=== PATIENT | male | born 1950 | race Caucasian/White ===

== ENCOUNTER 2021-06-18 13:31 | Observation (INO) | payer MEDICARE, OTHER, SELFPAY ==
[2021-06-18] VITALS (12 sets, daily range): BP systolic 148–175; BP diastolic 82–103; PULSE 76–101; RESP 14–19; TEMP 36.3–37.1; O2SAT 94–97; BMI 32.5; BMI 30.6
--- NOTE | 2021-06-18 13:34 | EKG12_ITS ---
Test Reason : STROKE ALERT Blood Pressure : / mmHG Vent. Rate : 091 BPM Atrial Rate : 091 BPM P-R Int : 194 ms QRS Dur : 102 ms QT Int : 388 ms P-R-T Axes : 023 038 021 degrees QTc Int : 477 ms Normal sinus rhythm Poor R wave progression Confirmed by LORI SUTTON, ANT ([id number]), general expeditor COREY CAGE ([id number]) on 06/19/2021 9:45:51 AM Referred By: APRIL Confirmed By:ANT SANDOVAL MD
--- NOTE | 2021-06-18 13:34 | CT_ITS ---
STUDY: CT HEAD STROKE PROTOCOL W/O CONTRAST INJECTION REASON FOR EXAM: Male, 71 years old. Mental status change, possible CVA RADIATION DOSAGE (If Supplied By Facility): CTDIvol = ( ) mGy, DLP = ( ) mGycm TECHNIQUE: Transaxial CT imaging of the brain was performed without administration of intravenous contrast material. Individualized dose optimization techniques were used for this CT. COMPARISON: No relevant priors. FINDINGS: Normal soft tissue structures. Normal calvarium. Normal size ventricles and extra-axial spaces for the patient''s age. There are areas of decreased attenuation within the white matter tracts of the supratentorial brain, consistent with microvascular disease changes. Normal basal ganglia and thalami. Normal brainstem. Normal cerebellum. There is no intracranial hemorrhage. There are no findings of an acute ischemic infarction. Normal visualized paranasal sinuses. ASPECT score: 10 CT/STROKE Brain/Head without Cont IMPRESSION: Chronic involutional changes of the brain. No acute hemorrhage N.B. : The above Results were Read Back by Aleksey Turcios MD to Dr. Denise MD, and understanding confirmed on 06/18/2021 13:48:13 (ET). Electronically Signed: Aleksey Turcios MD at 13:49 EST , Service support ,
--- NOTE | 2021-06-18 13:34 | RAD_ITS ---
STUDY: X-RAY CHEST REASON FOR EXAM: Male, 71 years old. Mental status change, possible CVA TECHNIQUE: Single AP portable view of the chest. COMPARISON: None. FINDINGS: EKG leads overlie the chest The lungs are clear and expanded. There is no demonstrated pleural abnormality. Normal size heart. Normal mediastinum and tonya. Normal visualized pulmonary arteries. Normal visualized aortic arch and descending thoracic aorta. Normal visualized thoracic spine. Normal visualized ribs, clavicles, and shoulders. There is no demonstrated abnormality of the visualized soft tissue structures of the upper abdomen. RAD/Chest 1 View IMPRESSION: No acute pulmonary process Electronically Signed: Aleksey Turcios MD at 15:18 EST , Service support ,
--- NOTE | 2021-06-18 13:35 | CT_ITS ---
STUDY: CTA HEAD AND NECK WITH CONTRAST REASON FOR EXAM: Male, 71 years old. Mental status change, possible CVA RADIATION DOSAGE (If Supplied By Facility): CTDIvol = ( 20.09 ) mGy, DLP = ( 785.33 ) mGycm TECHNIQUE: CT angiography was performed with a multi-detector CT scanner. Data acquisition was obtained from the skull base through the vertex following intravenous administration of IV 100mL Isovue-370. MIP images were reconstructed from the axial data set. Post-processing of the angiographic images was performed, with multiplanar reformation and 3D reconstruction. Individualized dose optimization techniques were used for this CT. COMPARISON: No relevant priors. FINDINGS: Normal bilateral petrous carotid arteries. Normal right cavernous carotid artery with a normal supraclinoid bifurcation. Normal left cavernous carotid artery with a normal supraclinoid bifurcation. Normal right A1 segments of the anterior cerebral artery. There is non-visualization of the left A1 segment of the anterior cerebral artery. Likely congenital. Normal intact anterior communicating artery (ACOM). Normal bilateral A2 segments of the anterior cerebral arteries. Normal right M1 and M2 segments of the middle cerebral arteries, with a normal M1 bifurcation. Normal left M1 and M2 segments of the middle cerebral arteries, with a normal M1 bifurcation. Normal right posterior communicating artery (PCOM). Normal left posterior communicating artery (PCOM). There is a small atretic right vertebral artery with a dominant left vertebral artery. Normal basilar artery with a normal basilar bifurcation. The visualized bilateral superior cerebellar (SCA) arteries are normal. Normal bilateral P1, P2 and visualized P3 segments of the posterior cerebral arteries. There is no demonstrated aneurysm of the alutiiq of [place]. There is no demonstrated abnormality of the visualized brain. AORTIC ARCH: Normal visualized aortic arch. Normal origins of the brachiocephalic, left common carotid, and left subclavian arteries. RIGHT CAROTID ARTERIES: Normal right common carotid artery (CCA). There is moderate atherosclerotic plaque formation without significant narrowing of the right carotid bulb. Normal origin of the right internal carotid (ICA) artery without a hemodynamically significant stenosis. Normal visualized cervical portion of the right internal carotid artery. Normal origin of the right external carotid artery (ECA). LEFT CAROTID ARTERIES: Normal left common carotid artery (CCA). There is moderate atherosclerotic plaque formation without significant narrowing of the carotid bulb. Normal origin of the left internal carotid (ICA) artery without a hemodynamically significant stenosis. Normal visualized cervical portion of the left internal carotid artery. Normal origin of the left external carotid artery (ECA). VERTEBRAL ARTERIES: There is enhancement within the bilateral vertebral arteries with a small right vertebral artery, and a dominant left vertebral artery. The soft tissue windows show normal-appearing thyroid gland. No suspicious enhancing lesion, airway narrowing or deviation. Bony structures show degenerative change. CT/STROKE CTA Head AND Neck W/Con IMPRESSION: No CTA evidence of hemodynamically significant stenosis, aneurysm, or vascular malformation. No occlusion noted. 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 : The above Results were Read Back by Aleksey Turcios MD to Dr. Agusto MD, and understanding confirmed on 06/18/2021 14:09:53 (ET). Electronically Signed: Aleksey Turcios MD at 14:11 EST , Service support ,
--- NOTE | 2021-06-18 13:36 | ED.VIS.STROK ---
HPI History of Present Illness Chief Complaint: Neuro S/Sx Detail of Chief Complaint: Patient presents with left-sided weakness that started at 1 PM Informant: patient and EMS Narrative Narrative: Patient presents to the emergency department with complaint of left-sided weakness that started while he was trying to eat lunch. Patient tells me has no medical history and takes no medications. He is not on blood thinners. He denies headache. Symptoms came on suddenly. He denies chest pain or shortness of breath. He denies recent illness. PFSH PFSH Medical History no medical history Home Medications NK 06/18/21 [History Last Taken Unknown] Allergy/AdvReac Type Severity Reaction Status Date / Time No Known Allergies Allergy Verified 06/18/21 14:34 Social History Smoking Status: Current every day smoker tobacco type: cigarettes ROS ROS ED Constitutional Constitutional ED: Reports systems reviewed and no addt'l complaints, except as documented; Denies body ache(s), change in weight or chills Eyes Eyes: Denies acute decrease in peripheral vision, change in vision, double vision or loss of vision ENT ENT ED: Reports none; Denies ear pain, lip swelling, loss taste/smell, neck pain, otalgia or sore throat Cardiovascular Cardiovascular: Reports none; Denies abdominal pain, chest pain with activity, leg edema, lightheadedness, palpitations, rapid heart rate or syncope Respiratory/Chest Respiratory/Chest: Reports none; Denies change in mental status, dry cough, dyspnea, hemoptysis, shortness of breath at rest or shortness of breath with exertion Gastrointestinal Gastrointestinal: Reports none; Denies abdominal pain, change in stool character, diarrhea, hematemesis, hematochezia, melena, rectal bleeding or vomiting Genitourinary Genitourinary ED: Reports none; Denies abdominal discomfort, anuria, dysuria, genital pain or polyuria Musculoskeletal Musculoskeletal: Reports none; Denies arthralgias, back pain, difficulty walking, extremity pain, muscle weakness or myalgias Integumentary Reports none; Denies abscess or rash Neurologic Neurologic: Reports none, weakness and other Details: Left arm and left leg weakness ; Denies abnormal gait, confusion, focal weakness, frequent falls, headache(s), loss of vision, numbness, paresthesias, radicular pain or vertigo Psychiatric Psychiatric: Reports systems reviewed and no addt'l complaints, except as documented and none; Denies behavioral changes, confusion, difficulty concentrating, hallucinations, suicidal ideation, tactile hallucinations or visual hallucinations Endocrine Endocrinology: Denies none, cold intolerance, excessive sweating, fatigue or heat intolerance Hematologic/Lymphatic Hematologic/Lymphatic: Reports none; Denies anemia, easy bleeding or easy bruising Allergic/Immunologic Allergic/Immunologic ED: Denies as per HPI, none, lip swelling, mouth swelling, throat swelling, tongue swelling or hives EXAM Physical Exam Const Vital Signs: 06/18/21 13:31 06/18/21 13:32 06/18/21 13:34 Temperature 98.7 F Temperature Source Temporal Pulse Rate 101 H Respiratory Rate 19 H Blood Pressure 175/88 H Blood Pressure Mean 117 Pulse Ox 97 Oxygen Delivery Method Room Air Room Air Room Air 06/18/21 13:45 06/18/21 14:05 06/18/21 14:09 Temperature Temperature Source Pulse Rate 97 95 96 Respiratory Rate 15 17 19 H Blood Pressure 165/103 H 173/91 H 173/91 H Blood Pressure Mean 123 118 118 Pulse Ox 94 94 96 Oxygen Delivery Method Room Air Room Air Room Air Positive well nourished and well developed General Appearance ED: well developed and NAD HEENT Reports TM's clear and moist mucous membranes normocephalic and atraumatic; Negative for trauma or tenderness Tympanic Membrane ED: Yes TM's clear Eyes PERRL and EOMs intact bilaterally General Eye ED: Negative for pale conjunctiva or scleral icterus Neck no lymphadenopathy, supple and no JVD General: Negative for tenderness Chest Wall inspection of chest normal and palpation of chest normal Chest: Negative for tenderness Resp normal respiratory effort and clear to auscultation bilaterally Effort and Inspection: Negative for respiratory distress or pain with movement Auscultation: Negative for rhonchi, wheezes or diminished lung sounds Cardio regular rate, regular rhythm, S1 normal heart sound, S2 normal heart sound and no murmurs Peripheral Pulses: pulses 2+ throughout GI normal to inspection, nondistended, normoactive bowel sounds, soft to palpation, non-tender, non-distended and no masses Back/Spine no CVA tenderness and no thoracic nor lumbar tenderness Extremity normal to inspection General Extremety ED: Negative for edema General Extremity: Negative for edema Neuro oriented x3, CN's II-XII intact bilaterally, no sensory deficits noted and gait normal Sensorium / Orientation: awake, alert, oriented to person, oriented to place and oriented to time Motor Exam: strength abnormal Psych mental status grossly normal Skin no rashes or lesions noted and no wounds STROKE Vital Signs/Narrative: Vital Signs Temp Pulse Resp BP Pulse Ox 06/18/21 14:09 96 19 H 173/91 H 96 06/18/21 14:05 95 17 173/91 H 94 06/18/21 13:45 97 15 165/103 H 94 06/18/21 13:31 98.7 F 101 H 19 H 175/88 H 97 MDM MDM MDM Narrative Medical decision making narrative: IV line established on arrival. Patient was taken directly to CT scanner on arrival. Initially on arrival patient was unable to lift his left leg off the bed and had a hard time keeping his left arm up without it drifting. Initially I gave him an NIH of 5. By the time he returned back from the CT scanner he is now able to completely lift his left leg off the bed and hold it up and he is able to hold his left arm up without difficulty. Patient was evaluated by [facility] neurologist and it was felt that he was not a TPA candidate as he is resolved mostly back to his baseline. His CT and CTA were essentially unremarkable. Lab work-up was unremarkable. Case discussed with hospitalist will evaluate patient for admission for CVA/TIA Lab Data Attestation: I reviewed the patient's lab results. Labs: Laboratory Results - last 24 hr 06/18/21 06/18/21 06/18/21 13:47 13:47 13:47 WBC 6.0 RBC 5.00 Hgb 15.4 Hct 44.9 MCV 89.8 MCH 30.8 MCHC 34.3 RDW Std Deviation 39.8 RDW Coeff of Fernanda 12.1 Plt Count 176 MPV 9.7 Immature Gran % (Auto) 0.500 Neut % (Auto) 50.9 Lymph % (Auto) 37.3 [place] % (Auto) 8.3 Eos % (Auto) 2.3 Baso % (Auto) 0.7 Absolute Neuts (auto) 3.1 Absolute Lymphs (auto) 2.24 Nucleated RBC % 0 PT 13.2 INR 1.1 APTT 32.2 Sodium 137 Potassium 3.7 Chloride 106 Carbon Dioxide 25.0 Anion Gap 6 BUN 17 Creatinine 1.01 Estim Creat Clear Calc 67.26 Est GFR (MDRD) Af Amer 93 Est GFR (MDRD) Non-Af 77 BUN/Creatinine Ratio 16.8 Glucose 124 H Calcium 8.6 Troponin I High Sens 9 Radiography Diagnostic Testing: Clinical Impression(s) from Imaging Studies Brain CT 06/18/21 13:34 IMPRESSION: Chronic involutional changes of the brain. No acute hemorrhage N.B. : The above Results were Read Back by Aleksey Turcios MD to Dr. Denise MD, and understanding confirmed on 06/18/2021 13:48:13 (ET). Electronically Signed: Aleksey Turcios MD at 13:49 EST , Service support , ADDENDUM: 06/18/21 1356 IMPRESSION: Chronic involutional changes of the brain. No acute hemorrhage N.B. : The above Results were Read Back by Aleksey Turcios MD to Dr. Denise MD, and understanding confirmed on 06/18/2021 13:48:13 (ET). Electronically Signed: Aleksey Turcios MD at 13:49 EST , Service support , Head/Neck CTA 06/18/21 13:35 IMPRESSION: No CTA evidence of hemodynamically significant stenosis, aneurysm, or vascular malformation. No occlusion noted. 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 : The above Results were Read Back by Aleksey Turcios MD to Dr. Agusto MD, and understanding confirmed on 06/18/2021 14:09:53 (ET). Electronically Signed: Aleksey Turcios MD at 14:11 EST , Service support , ADDENDUM: 06/18/21 1418 IMPRESSION: No CTA evidence of hemodynamically significant stenosis, aneurysm, or vascular malformation. No occlusion noted. 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 : The above Results were Read Back by Aleksey Turcios MD to Dr. Agusto MD, and understanding confirmed on 06/18/2021 14:09:53 (ET). Electronically Signed: Aleksey Turcios MD at 14:11 EST , Service support , EKG Initial EKG: Attestation: I personally reviewed and interpreted this EKG as follows: Comments: Sinus rhythm with a ventricular rate of 91 bpm with no acute ST segment changes Stroke Documentation Questions Stroke Team Activated: Yes Discharge Plan Triage Chief Complaint: Neuro S/Sx ED Provider: Adilia Walker Dx/Rx/DC Orders Clinical Impression: Brain TIA, Acute CVA (cerebrovascular accident) Prescriptions: No Action NK RF: 0 Primary Care Provider: Mukesh Reyes Referrals: Mukesh Reyes MD [Primary Care Provider] - Disposition Disposition: Acute Care Hospital [facility]
[2021-06-18 13:54] LABS: Absolute Lymphocyte Count 2.24 X10^3/uL (0.83-4.51); Absolute Neutrophil Count 3.1 X10^3/uL (2.0-7.7); Basophil# 0.04 X10^3/uL; Basophil% 0.7 % (0-1); Eosinophil# 0.14 X10^3/uL; Eosinophils% 2.3 % (0-5); Hematocrit 44.9 % (40-54); Hemoglobin 15.4 g/dL (13.0-16.5); Lymphocyte # 2.24 X10^3/ul (0.83-4.51); Lymphocyte % 37.3 % (19-41); Mean Corp Hgb Conc 34.3 g/dL (32-36); Mean Corpuscular Hgb 30.8 pg (27.0-32.0); Mean Corpuscular Volume 89.8 fL (80-94); Mean Platelet Vol. 9.7 fl (6.2-12.0); Monocyte% 8.3 % (0-10); NRBC Flagged by Analyzer 0 % (0-5); Neutrophil # 3.06 X10^3/uL (2.7-7.7); Neutrophil % 50.9 % (47-70); Platelet Count 176 K/mm3 (150-450); RBC Distribution Width CV 12.1 % (11.6-14.6); RBC Distribution Width SD 39.8 fl (35.1-43.9)
[2021-06-18 14:03] LABS: International Normalized Ratio 1.1; Prothrombin Time (Protime)PT. 13.2 SECONDS (11.7-14.9)
[2021-06-18 14:04] LABS: Partial Thromboplast Time 32.2 Seconds (24.1-36.2)
[2021-06-18 14:13] LABS: Anion Gap 6 (5-15); BUN 17 mg/dL (7-18); BUN/Creat Ratio 16.8 RATIO (10-20); Calcium,Total 8.6 mg/dL (8.5-10.1); Chloride 106 mmol/L (98-107); Creatinine, Serum 1.01 mg/dL (0.70-1.30); EST Glomerular Filtration Rate 77 mL/min (>60); Est Glom Filt Rate - Afr Amer 93 mL/min (>60); Estimated Creatinine Clearance 67.26 ml/min; Glucose 124 mg/dL (74-106); Potassium 3.7 mmol/L (3.5-5.1); Sodium Level 137 mmol/L (136-145); Troponin-I HS 9 pg/mL (3.0-78.0)
--- NOTE | 2021-06-18 14:30 | ED.RN ---
assisted pt to side of bed to use urinal . pt had diffiuclty with lefft leg. able to stand and bear wt without leaning to the side but leg was difficult to positioon prior to standing. left arm weakness noted when trying to push self up from bed. hand grasp to hold urinal mild difficulty.
--- NOTE | 2021-06-18 14:35 | HP.PCM.HOS_ITS ---
[facility] - General General Date of Admission: 06/18/21 HPI Narrative WESTON MCKINLEY, is a 71 M with a PMH as outlined who presents with a complaint of left sided weakness which started this afternoon whilst he was eating his lunch. Patient has no significant PMH and is not on any meds. He denied any dizziness, chest pain, palpitations, or any other complaints. By the time patient came back from getting a CT of the brain, his symptoms had completely resolved. CT of hte brain was negative, and CTA of the head and neck was also negative for any signficant stenosis. Telestroke was called and patient was not deemed a candidate for TPA as his symptoms have largely resolved. He was therefore thought to have a TIA. Vitals were blood pressure 173/91 with pulse rate of 96, respiratory rate of 19 and he was saturating at 96% on room air. CBC and BMP were largely unremarkable. He has been admitted to be managed for TIA [facility] Medical History Smoker Medical History no medical history Home Medications NK 06/18/21 [History Last Taken Unknown] Allergy/AdvReac Type Severity Reaction Status Date / Time No Known Allergies Allergy Verified 06/18/21 14:34 Social History (Updated 06/18/21 @ 15:58 by Alejandra Garcia) household members: spouse housing: house Smoking Status: Current every day smoker tobacco type: cigarettes Tobacco: How many years used: 50 (1ppd) alcohol intake: current details: 3 whiskey drinks/day ROS Constitutional Constitutional: Denies anorexia, change in weight, chills, fatigue, fever(s), malaise or weakness Eyes Eyes: Denies change in vision ENT HEENT: Denies dysphagia, headache(s), hearing loss, nasal congestion, nasal discharge or sore throat Cardiovascular Cardiovascular: Denies chest pain, dyspnea on exertion, edema, lightheadedness, orthopnea, palpitations, paroxysmal nocturnal dyspnea, rapid heart rate or syncope Respiratory/Chest Respiratory/Chest: Denies cough, dyspnea, productive cough, shortness of breath at rest, shortness of breath with exertion or wheezing Gastrointestinal Gastrointestinal: Denies abdominal pain, constipation, diarrhea, nausea or vomiting Genitourinary Genitourinary: Denies burning urination or dysuria Musculoskeletal Musculoskeletal: Denies arthralgias, back pain or joint swelling Neurologic Neurologic: Denies confusion, dizziness, focal weakness, headache(s), numbness, seizures, syncope or tingling Psychiatric Psychiatric: Denies anxiety Endocrine Endocrinology: Denies change in body appearance Vital Signs Vital Signs Vital Signs: 06/18/21 13:31 06/18/21 13:32 06/18/21 13:34 Temperature 98.7 F Temperature Source Temporal Pulse Rate 101 H Respiratory Rate 19 H Blood Pressure 175/88 H Blood Pressure Mean 117 Pulse Ox 97 Oxygen Delivery Method Room Air Room Air Room Air 06/18/21 13:45 06/18/21 14:05 06/18/21 14:09 Temperature Temperature Source Pulse Rate 97 95 96 Respiratory Rate 15 17 19 H Blood Pressure 165/103 H 173/91 H 173/91 H Blood Pressure Mean 123 118 118 Pulse Ox 94 94 96 Oxygen Delivery Method Room Air Room Air Room Air Weight Weight: 226 lb 10.163 oz Body Mass Index (BMI) 32.5 Physical Exam Const alert, oriented x3, no apparent distress, healthy appearing and well nourished General Appearance: cooperative HEENT normocephalic, head/scalp atraumatic, hearing grossly normal bilaterally and moist oral mucous membranes Eyes PERRL, EOMs intact bilaterally and conjunctivae normal Neck no lymphadenopathy and supple Resp normal respiratory effort, no retractions, no use of accessory muscles and clear to auscultation bilaterally Cardio regular rate, regular rhythm, S1 normal heart sound, S2 normal heart sound and no murmurs GI normal to inspection, nondistended, normoactive bowel sounds, soft to palpation, non-tender and non-distended Extremity normal to inspection, full ROM and no clubbing, cyanosis or edema Peripheral Pulses: Yes pulses 2+ throughout Skin no rashes or lesions noted Neuro oriented x3, CN's II-XII intact bilaterally, moves all extremities and no focal motor deficits Neuro Narrative: power in LUE an LLE is 4-/5; power in RUE and RLE is 5/5. Sensorium / Orientation: awake and alert Speech: speech normal Psych affect normal Results Lab / Micro Data Result Diagrams: 06/18/21 13:47 06/18/21 13:47 Labs: Laboratory Results - last 24 hr 06/18/21 13:47: WBC 6.0, RBC 5.00, Hgb 15.4, Hct 44.9, MCV 89.8, MCH 30.8, MCHC 34.3, RDW Std Deviation 39.8, RDW Coeff of Fernanda 12.1, Plt Count 176, MPV 9.7, Immature Gran % (Auto) 0.500, Neut % (Auto) 50.9, Lymph % (Auto) 37.3, [place] % (Auto) 8.3, Eos % (Auto) 2.3, Baso % (Auto) 0.7, Absolute Neuts (auto) 3.1, Absolute Lymphs (auto) 2.24, Nucleated RBC % 0 06/18/21 13:47: PT 13.2, INR 1.1, APTT 32.2 06/18/21 13:47: Sodium 137, Potassium 3.7, Chloride 106, Carbon Dioxide 25.0, Anion Gap 6, BUN 17, Creatinine 1.01, Estim Creat Clear Calc 67.26, Est GFR (MDRD) Af Amer 93, Est GFR (MDRD) Non-Af 77, BUN/Creatinine Ratio 16.8, Glucose 124 H, Calcium 8.6, Troponin I High Sens [address] 06/18/21 13:34 IMPRESSION: Chronic involutional changes of the brain. No acute hemorrhage N.B. : The above Results were Read Back by Aleksey Turcios MD to Dr. Denise MD, and understanding confirmed on 06/18/2021 13:48:13 (ET). Electronically Signed: Aleksey Turcios MD at 13:49 EST , Service support , ADDENDUM: 06/18/21 1356 IMPRESSION: Chronic involutional changes of the brain. No acute hemorrhage N.B. : The above Results were Read Back by Aleksey Turcios MD to Dr. Denise MD, and understanding confirmed on 06/18/2021 13:48:13 (ET). Electronically Signed: Aleksey Turcios MD at 13:49 EST , Service support , Head/Neck CTA 06/18/21 13:35 IMPRESSION: No CTA evidence of hemodynamically significant stenosis, aneurysm, or vascular malformation. No occlusion noted. 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 : The above Results were Read Back by Aleksey Turcios MD to Dr. Agusto MD, and understanding confirmed on 06/18/2021 14:09:53 (ET). Electronically Signed: Aleksey Turcios MD at 14:11 EST , Service support , ADDENDUM: 06/18/21 1418 IMPRESSION: No CTA evidence of hemodynamically significant stenosis, aneurysm, or vascular malformation. No occlusion noted. 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 : The above Results were Read Back by Aleksey Turcios MD to Dr. Agusto MD, and understanding confirmed on 06/18/2021 14:09:53 (ET). Electronically Signed: Aleksey Turcios MD at 14:11 EST , Service support , Assessment & Plan Assessment/Plan (1) Brain TIA: PLAN: #TIA * Patient admitted with a complaint of left-sided weakness which is now res olved. * Admit to PCU * Check lipid panel and A1c. Get MRI of the brain without contrast tomorrow * CT of the brain and CTA of hte head and neck were unremarkable apart from an absent left A1 artery likely congenital and a small right vertebral artery but no evidence of any CVA, significant stenosis, aneurysm or vascular malformation and no occlusion noted. * P.o. aspirin 81 mg daily. High intensity statin * Allow permissive hypertension for the next 24 hours * PT OT precautions. Fall precautions. * #Elevated blood pressure * Patient states is not a known hypertensive he does not take any medications. Blood pressure is 173/91. We will allow for permissive hypertension over the next 24 hours and commence on blood pressure medications if blood pressure remains elevated. * #Nicotine dependence: Patient smokes at least 1 pack daily. Counseled to quit. #DVT prophylaxis; SCDs Code status: full code * Patient counseled extensively about different types of CODE STATUS including full code, DNR CCA and DNR CCA. Patient elects to be full code. * Total msta-av-lcvt time 16 minutes. Charges/Coding Visit Charges OBSV E&M: 32033 Initial observation care L3 Procedures Hospitalists Procedures: 18824 Advncd Care Plan 30 Min
--- NOTE | 2021-06-18 15:32 | PCS.PANDOC ---
PANDEMIC DOCUMENTATION INITIATED: Date: 02/13/2021 Time: 190
[2021-06-18 18:25] LABS: Hemoglobin A1c 5.2 % (3.8-5.6)
[2021-06-18] MEDS: Atorvastatin Calcium 40 MG Tablet PO (22:15)
[2021-06-19] VITALS (10 sets, daily range): BP systolic 145–189; BP diastolic 70–106; PULSE 66–83; RESP 12–18; TEMP 36.4–37.1; O2SAT 92–98; BMI 30.6
--- NOTE | 2021-06-19 05:55 | MRI_ITS ---
We are attempting to reach an attending provider to discuss findings. An addendum with communication details will be sent when the communication is complete. STUDY: MRI BRAIN WITHOUT CONTRAST REASON FOR EXAM: Male, 71 years old. TIA, L FACIAL DROOP TECHNIQUE: Standardized multiplanar fat and water weighted pulse sequences were obtained. COMPARISON: CT of the brain 06/18/2021 FINDINGS: Mild atrophy and mild to moderate periventricular white matter ischemic changes without mass effect or restricted diffusion. High signal intensity within the posterior limb of the right internal capsule demonstrating restricted diffusion consistent with acute ischemic infarction. Normal thalami. There is no extra-axial fluid accumulation. Normal flow voids within the major intracranial circulation suggesting patency by spin echo criteria. Normal sella turcica, pituitary gland, infundibular stalk, optic chiasm and hypothalamus. Normal tectal plate and pineal gland. Normal midbrain, kellie and medulla. Normal cerebellum. Normal basal cisterns. Normal bilateral temporal bones. Normal bilateral internal auditory canals. No demonstrated orbital abnormality, within the constraints of a routine brain study. Normal visualized paranasal sinuses. Normal calvarium and skull base. Normal visualized soft tissue structures. Normal visualized upper cervical spine. MRI/Brain without Contrast IMPRESSION: Mild to moderate periventricular white matter ischemic changes. Acute lacunar infarct in the posterior limb of the right internal capsule Electronically Signed: Rodolfo Christensen MD at 15:54 EST , Service support ,
[2021-06-19 06:26] LABS: Absolute Lymphocyte Count 1.91 X10^3/uL (0.83-4.51); Absolute Neutrophil Count 6.6 X10^3/uL (2.0-7.7); Basophil# 0.04 X10^3/uL; Basophil% 0.4 % (0-1); Eosinophil# 0.11 X10^3/uL; Eosinophils% 1.2 % (0-5); Hematocrit 48.3 % (40-54); Lymphocyte # 1.91 X10^3/ul (0.83-4.51); Lymphocyte % 20.6 % (19-41); Mean Corp Hgb Conc 33.1 g/dL (32-36); Mean Corpuscular Hgb 29.9 pg (27.0-32.0); Mean Corpuscular Volume 90.1 fL (80-94); Mean Platelet Vol. 10.3 fl (6.2-12.0); Monocyte# 0.59 X10^3/uL; Monocyte% 6.4 % (0-10); NRBC Flagged by Analyzer 0 % (0-5); Neutrophil % 71.2 % (47-70); Platelet Count 196 K/mm3 (150-450); RBC Distribution Width SD 38.9 fl (35.1-43.9); Red Blood Count 5.36 M/mm3 (4.6-6.2); White Blood Count 9.3 K/mm3 (4.4-11.0)
[2021-06-19 06:35] LABS: Anion Gap 7 (5-15); BUN 13 mg/dL (7-18); BUN/Creat Ratio 14.3 RATIO (10-20); Calcium,Total 8.9 mg/dL (8.5-10.1); Chloride 108 mmol/L (98-107); Cholesterol 196 mg/dL (200); Creatinine, Serum 0.91 mg/dL (0.70-1.30); EST Glomerular Filtration Rate 87 mL/min (>60); Est Glom Filt Rate - Afr Amer 105 mL/min (>60); Estimated Creatinine Clearance 74.65 ml/min; Glucose 97 mg/dL (74-106); High Density Lipoprotein 42 mg/dL; Potassium 3.9 mmol/L (3.5-5.1); Sodium Level 139 mmol/L (136-145); Triglycerides 204 mg/dL; Very Low Density Lipoprotein 41 mg/dL (5-40)
--- NOTE | 2021-06-19 07:47 | ECHOD_ITS ---
Reason For Study: TIA/CVA Procedure This was a 2D Doppler, Color Flow transthoracic echocardiogram. Exam performed portable in patient room. Left Ventricle Normal LV size. Left ventricular systolic function is normal. The estimated ejection fraction is 60 %. Stage 1 diastolic dysfunction. No regional wall motion abnormalities noted. Right Ventricle Normal RV size. Normal systolic function. Atria Normal left atrium. Normal right atrium. Bubble contrast study negative for right to left interatrial shunt. Mitral Valve Normal mitral valve. Tricuspid Valve Normal tricuspid valve. Aortic Valve Normal aortic valve. Trisinus/trileaflet aortic valve. Pulmonic Valve Normal pulmonic valve. Great Vessels Normal aortic root. The pulmonary artery is normal size. Normal inferior vena cava. Pericardium/Pleural No pericardial effusion. Medication Performed a rapid injection of agitated mix of 9 cc saline and 1cc air to assess for atrial septal defect. MMode/2D Measurements & Calculations LVIDd: 4.9 cm IVSd: 1.3 cm Ao root diam: 3.0 cm LVIDs: 3.2 cm LVPWd: 1.2 cm RVDd: 3.1 cm FS: 33.7 % LAV(MOD-bp): 50.5 ml LA A4 area: 17.9 cm2 LA dimension(2D): 3.9 cm LAV(MOD-bp) Indexed: 23.6 ml/m2 LAV(MOD-sp2): 50.0 ml LAV(MOD-sp4): 48.4 ml RA A4 area: 14.8 cm2 Time Measurements MV dec time: 0.23 sec Doppler Measurements & Calculations MV E max ho: 81.0 cm/sec Lat Peak E' Ho: 6.9 cm/sec Med Peak E' Ho: 7.0 cm/sec MV A max ho: 109.2 cm/sec E/E' lat: 11.7 E/E' med: 11.6 MV E/A: 0.74 Ao V2 max: 150.8 cm/sec LV V1 max: 100.7 cm/sec PA V2 max: 103.8 cm/sec Ao max P.1 mmHg LV V1 max P.1 mmHg ECHO/Echo Complete Interpretation Summary Normal LV size. Left ventricular systolic function is normal. The estimated ejection fraction is 60 %. Stage 1 diastolic dysfunction. Bubble contrast study negative for right to left interatrial shunt. Ordering Physician: Rebecca Villarreal Referring Physician: Mukesh Reyes Performed By: Radha Hunt, SEVERIANO, RVT
[2021-06-19] MEDS: Aspirin 81 MG TAB.CHEW PO (08:22)
--- NOTE | 2021-06-19 11:05 | CASEMGMT ---
SW completed a PHQ 9 with patient as he had a TIA. Patient scored a 0 which indicates no depression. Rupal Hayes MSW JOSE
--- NOTE | 2021-06-19 11:06 | CASEMGMT ---
Therapy told SW that patient would be a good Inpatient Rehab candidate. SW met with patient and his . SW introduced self and role at [facility]. SW went over discharge options including shelter and Inpatient Rehab. Patient is most interested in [facility] 4th floor Inpatient Rehab Unit. Patient is open to [facility] TCU as well if inpatient rehab does not work out. SW told them SW can let them know as soon as SW hears back regarding whether or not rehab is taking patients. GUS did speak to Beth and she is checking to see if rehab is taking patients. Rupal Hayes KITCHEN MANAGER JOSE
--- NOTE | 2021-06-19 12:07 | CASEMGMT ---
GUS received a call from Beth and at this time they are not taking patients on the rehab unit. SW spoke with patient and his letting them know this information. SW provided them with a list of SNF providers including quality and resource use data and consistent with the patient?s preferred geographic region, medical needs, and insurance network. Patient and his said they will likely choose TCU, but will review the list. SW will check back in a little bit. Rupal GARCIA
--- NOTE | 2021-06-19 13:42 | PCM.PN.HOSP ---
Documented by User: Teagn Long NP-C 06/19/21 13:51 Subjective Subjective Patient seen and examined. Patient sitting in bed no distress noted. Patient states that his left side is not as weak as yesterday however he continues to have some weakness with ambulation. Patient going for MRI today. Objective Data Objective Data Vital Signs: Vital Signs Temp Pulse Resp BP Pulse Ox 98.2 F 83 16 189/106 H 98 06/19/21 10:00 06/19/21 10:00 06/19/21 10:00 06/19/21 10:00 06/19/21 10:00 Oxygen Delivery Method Room Air Weight: 213 lb 6.519 oz Body Mass Index (BMI) 30.6 Intake & Output: Intake and Output for Last 24 Hours 06/17/21 06/18/21 06/19/21 23:59 23:59 23:59 Intake Total 240 / 340 220 / 220 Output Total 400 / 725 1125 / 1125 Balance -160 / -385 -905 / -905 Lab / Micro Data Result Diagrams: 06/19/21 05:25 06/19/21 05:25 Labs: Laboratory Results - last 24 hr 06/18/21 13:47: WBC 6.0, RBC 5.00, Hgb 15.4, Hct 44.9, MCV 89.8, MCH 30.8, MCHC 34.3, RDW Std Deviation 39.8, RDW Coeff of Fernanda 12.1, Plt Count 176, MPV 9.7, Immature Gran % (Auto) 0.500, Neut % (Auto) 50.9, Lymph % (Auto) 37.3, [place] % (Auto) 8.3, Eos % (Auto) 2.3, Baso % (Auto) 0.7, Absolute Neuts (auto) 3.1, Absolute Lymphs (auto) 2.24, Nucleated RBC % 0 06/18/21 13:47: PT 13.2, INR 1.1, APTT 32.2 06/18/21 13:47: Sodium 137, Potassium 3.7, Chloride 106, Carbon Dioxide 25.0, Anion Gap 6, BUN 17, Creatinine 1.01, Estim Creat Clear Calc 67.26, Est GFR (MDRD) Af Amer 93, Est GFR (MDRD) Non-Af 77, BUN/Creatinine Ratio 16.8, Glucose 124 H, Calcium 8.6, Troponin I High Sens 9 06/18/21 13:47: Hemoglobin A1c 5.2 06/19/21 05:25: WBC 9.3, RBC 5.36, Hgb 16.0, Hct 48.3, MCV 90.1, MCH 29.9, MCHC 33.1, RDW Std Deviation 38.9, RDW Coeff of Fernanda 12.0, Plt Count 196, MPV 10.3, Immature Gran % (Auto) 0.200, Neut % (Auto) 71.2 H, Lymph % (Auto) 20.6, [place] % (Auto) 6.4, Eos % (Auto) 1.2, Baso % (Auto) 0.4, Absolute Neuts (auto) 6.6, Absolute Lymphs (auto) 1.91, Nucleated RBC % 0 06/19/21 05:25: Sodium 139, Potassium 3.9, Chloride 108 H, Carbon Dioxide 24.0, Anion Gap 7, BUN 13, Creatinine 0.91, Estim Creat Clear Calc 74.65, Est GFR (MDRD) Af Amer 105, Est GFR (MDRD) Non-Af 87, BUN/Creatinine Ratio 14.3, Glucose 97, Calcium 8.9, Triglycerides 204 H, Cholesterol 196, LDL Cholesterol 113, VLDL Cholesterol 41 H, HDL Cholesterol 42 Radiography Diagnostic Testing: Radiology Impression Brain CT 06/18/21 13:34 IMPRESSION: Chronic involutional changes of the brain. No acute hemorrhage N.B. : The above Results were Read Back by Aleksey Turcios MD to Dr. Denise MD, and understanding confirmed on 06/18/2021 13:48:13 (ET). Electronically Signed: Aleksey Turcios MD at 13:49 EST , Service support , ADDENDUM: 06/18/21 1356 IMPRESSION: Chronic involutional changes of the brain. No acute hemorrhage N.B. : The above Results were Read Back by Aleksey Turcios MD to Dr. Denise MD, and understanding confirmed on 06/18/2021 13:48:13 (ET). Electronically Signed: Aleksey Turcios MD at 13:49 EST , Service support , Chest X-Ray 06/18/21 13:34 IMPRESSION: No acute pulmonary process Electronically Signed: Aleksey Turcios MD at 15:18 EST , Service support , Head/Neck CTA 06/18/21 13:35 IMPRESSION: No CTA evidence of hemodynamically significant stenosis, aneurysm, or vascular malformation. No occlusion noted. 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 : The above Results were Read Back by Aleksey Turcios MD to Dr. Agusto MD, and understanding confirmed on 06/18/2021 14:09:53 (ET). Electronically Signed: Aleksey Turcios MD at 14:11 EST , Service support , ADDENDUM: 06/18/21 1418 IMPRESSION: No CTA evidence of hemodynamically significant stenosis, aneurysm, or vascular malformation. No occlusion noted. 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 : The above Results were Read Back by Aleksey Turcios MD to Dr. Agusto MD, and understanding confirmed on 06/18/2021 14:09:53 (ET). Electronically Signed: Aleksey Turcios MD at 14:11 EST , Service support , Echocardiogram 06/19/21 07:47 Interpretation Summary Normal LV size. Left ventricular systolic function is normal. The estimated ejection fraction is 60 %. Stage 1 diastolic dysfunction. Bubble contrast study negative for right to left interatrial shunt. Ordering Physician: Rebecca Villarreal Referring Physician: Mukesh Reyes Performed By: Radha Hunt, SEVERIANO, RVT Physical Exam Const alert, oriented x3 and no apparent distress HEENT head/scalp atraumatic and moist oral mucous membranes Head and Scalp: normocephalic Eyes conjunctivae normal and no scleral icterus Neck supple General: trachea midline Resp normal respiratory effort, normal air movement and clear to auscultation bilaterally Effort and Inspection: able to speak in complete sentences and symmetric chest movement Cardio regular rate, regular rhythm, S1 normal heart sound and S2 normal heart sound GI normal to inspection, nondistended, normoactive bowel sounds, soft to palpation and non-tender Extremity normal to inspection, full ROM and no clubbing, cyanosis or edema Skin no rashes or lesions noted, no wounds and skin turgor normal Neuro oriented x3 and moves all extremities Neuro Narrative: Left-sided weakness to left arm and left leg, 3 out of 5 strength Sensorium / Orientation: awake and alert Gait (Neuro): assistive device used walker Psych affect normal Assessment & Plan Assessment/Plan (1) Brain TIA: PLAN: 1. TIA/CVA -Patient scheduled for MRI at 2:30 PM today -CT and CTA negative for acute findings -PT and OT following, recommend continued skilled therapy, patient will likely need placed in shelter facility due to ongoing weakness and safety concerns. -NIH stroke score 1 -Echocardiogram demonstrates EF 60% -If MRI positive will consult teleneurology -Continue aspirin and high intensity statin 2. Hypertension -We will allow permissive hypertension for 24 hours -As needed labetalol and hydralazine ordered -Patient continues to be hypertensive will likely need initiation of antihypertensives 3. Tobacco dependence -Inpatient smoking cessation -Patient currently 1 pack/day smoker DVT prophylaxis-SCDs This patient was seen by OWEN RodriguezC under the supervision of Dr. Garza Documented by User: Dr. Al Garza MD 06/19/21 16:55 Objective Data Lab / Micro Data Result Diagrams: 06/19/21 05:25 06/19/21 05:25 Charges/Coding Addendum Addendum: Dr. Garza: I personally reviewed the chart and examined the patient, and agree with the above findings. 71-year-old male who is in fairly good health at home does not take any medications presented to the hospital with left-sided numbness tingling and weakness. He continues to have those systems though the weakness is improved. Echo was unremarkable, MRI demonstrated an acute lacunar infarct in the posterior limb of the right internal capsule, CT of the head and neck was unremarkable. We will continue with Lipitor and aspirin and allow permissive hypertension. Will consult [facility] neurology for recommendations and given his weakness plan for discharge to TCU tomorrow Visit Charges Inpatient E&M: 20079 Subs Hosp L2
--- NOTE | 2021-06-19 14:42 | CASEMGMT ---
Patient and his would like for patient to go to TCU for rehab. GUS let Beth know this information. Plan: [facility] TCU when ready. Rupal GARCIA
--- NOTE | 2021-06-19 16:05 | TELEMED_ITS ---
[facility] Telemed has confirmed receipt of a request for visit. This document confirms receipt of the order initiating the consult. To find the results of the consultation, please view the patient's reports for the scanned Telemed Consult.
--- NOTE | 2021-06-19 16:29 | CASEMGMT ---
Intro role of CM to patient and RAMOS form explained re: Observation status for treatment of TIA. Explained hospitalization will be paid per insurance policy for Outpatient billing and condition will continue to be evaluated for Inpt necessity. Discussed Pharmacy section of RAMOS form and self administered medication guideline. Pt verbalizes understanding and does not have further questions. Form signed and placed in chart, copy to pt. Carlos Garner RN CM
[2021-06-19] MEDS: Atorvastatin Calcium 40 MG Tablet PO (20:39)
[2021-06-20] VITALS (9 sets, daily range): BP systolic 131–144; BP diastolic 77–84; PULSE 60–94; RESP 14–18; TEMP 36.5–37; O2SAT 92–96; BMI 30.6
[2021-06-20] MEDS: Aspirin 81 MG TAB.CHEW PO (08:30)
[2021-06-20] MEDS: Clopidogrel Bisulfate 75 MG Tablet PO (08:32)
--- NOTE | 2021-06-20 10:50 | PCM.TXEXTCAR ---
Diet 06/18/21 15:30 Diet: Cardiac - Heart Healthy Food consistency:: Regular Liquid Consistency:: Regular/Thin Routine Orders/Code Status Enema Type: Fleetz Enema Frequency: Daily PRN Suppository Type: Dulcolax 10mg Suppository Frequency: Daily PRN Code Status: Full Code Suggestions for Active Care Change Position every (hours): 2 Times a day to sit in chair: 3 Therapies Physical Therapy: Eval and Treat Occupational Therapy: Eval and Treat Speech Therapy: Eval and Treat Problem/Diagnosis (1) Brain TIA: Status: Acute Allergies/Procedures Done in Hospital Allergies No Known Allergies Allergy (Verified 06/18/21 14:34) Procedures: None and 2-D Echocardiogram Type of Care/Length of Stay Estimated LOS: Convalescent Care Less Than 30 days Type of Care Needed: Skilled Rehab Potential: Good Prognosis: Good Additional Orders/Day of Discharge Day of Discharge: 06/20/21 Dietary and Speech Recommendations Speech Linguistic Eval Summary: Trace to mild L facial asymmetry w/ trace labial commissure and brow droop. L facial/cheek sensory impairment. Mild dysarthria characterized by reduced breath support/vocal intensity - reports this to be new w/ admission. Fully oriented. Able to attend to, retain and execute 3 step commands. Generative naming WNL. No evidence of apraxia or aphasia in conversational speech. Immediate recall grossly WNL- able to repeat back 13/18 details from a short story immediately after hearing it. Mental manipulation WNL - able to recite the 12 months of the year w/out difficulty. Discharge Plan Admission Admit Date/Time: 06/18/21 14:44 Primary Reason for Your Visit: CVA Attending Provider: Al Garza Primary Care Provider: Mukesh Reyes Discharge Orders/Prescriptions Prescriptions: New atorvastatin 40 mg Tablet 40 mg PO QHS Qty: 0 RF: 0 clopidogrel 75 mg Tablet 75 mg PO DAILY Qty: 0 RF: 0 aspirin 81 mg Tablet,Chewable 81 mg PO BREAKFAST Qty: 0 RF: 0 Referrals / Follow Up: Mukesh Reyes MD [Primary Care Provider] - (upon discharge from TCU) Disposition Disposition (needs filled in before D/C Order can be placed): [facility]it[facility]iary Facility
--- NOTE | 2021-06-20 10:55 | PCM.DC.SUM ---
Documented by User: DANELLE Rodriguez 06/20/21 10:59 Providers Date of Admission: 06/18/21 Primary Care Physician: Dr. Mukesh Reyes MD Reason For Visit: TIA Diagnosis Discharge Diagnosis (1) Brain TIA: Status: Acute Code(s): G45.9 - Transient cerebral ischemic attack, unspecified Medications at Discharge Home Medications aspirin 81 mg PO BREAKFAST #0 tab 06/20/21 atorvastatin 40 mg PO QHS #0 tab 06/20/21 clopidogrel 75 mg PO DAILY #0 tab 06/20/21 Hospital Course Operations None Summary of Care Provided Minutes Spent on Discharge: 35 Hospital Course: Is a 71-year-old male who originally presented to the ER with left-sided weakness. Patient has no medical history and was not on any medications. MRI was positive for stroke and patient was evaluated [place] [facility] [place] who recommended the initiation of 3 weeks of Plavix along with chronic aspirin and atorvastatin. Patient continues to have left-sided weakness and will be discharged to TCU for ongoing PT, OT, ST. Physical Exam Const alert, oriented x3, no apparent distress, healthy appearing and well nourished General Appearance: cooperative HEENT normocephalic, head/scalp atraumatic, hearing grossly normal bilaterally and moist oral mucous membranes Eyes conjunctivae normal and no scleral icterus Neck no lymphadenopathy and supple General: trachea midline Resp normal respiratory effort, normal air movement, no retractions, no use of accessory muscles and clear to auscultation bilaterally Effort and Inspection: able to speak in complete sentences and symmetric chest movement Cardio regular rate, regular rhythm, S1 normal heart sound, S2 normal heart sound and no murmurs GI normal to inspection, nondistended, normoactive bowel sounds, soft to palpation and non-tender Extremity normal to inspection, full ROM and no clubbing, cyanosis or edema Skin no rashes or lesions noted, no wounds and skin turgor normal Neuro oriented x3 and moves all extremities Neuro Narrative: Left-sided weakness to left arm and left leg, 3 out of 5 strength Sensorium / Orientation: awake and alert Speech: speech normal Gait (Neuro): assistive device used walker Motor Exam: strength 5/5 throughout Psych affect normal Weight / BMI Weight Weight: 213 lb 6.519 oz Body Mass Index (BMI) 30.6 ABG / Lab / Microbiology Data Result Diagrams: 06/19/21 05:25 06/19/21 05:25 Microbiology: Microbiology 06/19/21 14:00 Nasal Secretion SARS-CoV-2 Antigen (Rapid) - Final Radiography Diagnostic Testing: Radiology Impression Brain MRI 06/19/21 05:55 IMPRESSION: Mild to moderate periventricular white matter ischemic changes. Acute lacunar infarct in the posterior limb of the right internal capsule Electronically Signed: Rodolfo Christensen MD at 15:54 EST , Service support , ADDENDUM: 06/19/21 1608 IMPRESSION: Mild to moderate periventricular white matter ischemic changes. Acute lacunar infarct in the posterior limb of the right internal capsule N.B. : The above Results were Read Back by Rodolfo Christensen MD to Daniel Pink RN, and understanding confirmed on 06/19/2021 16:01:53 (ET). Electronically Signed: Rodolfo Christensen MD at 15:54 EST , Service support , D/C Instructions Discharge Diet: Low fat / Low cholesterol Discharge Activity: Return to Normal Activity Call your doctor if you observe: Numbness or Tingling Meaningful Use Info Meaningful Use Diagnoses (Choose all that apply): Ischemic CVA CVA Therapy Assessed for PT,OT and/or ST?: Yes Ischemic Stroke Antithrombotic order at d/c?: Yes Dx of Atrial fib/flutter?: No Statins at discharge?: Yes Primary Dx Acute Ischemic CVA?: Yes IV tPA ordered during stay?: No Reason IV t-PA not ordered: Medical Contraindication Discharge Plan Admission Admit Date/Time: 06/18/21 14:44 Primary Reason for Your Visit: CVA Attending Provider: Al Garza Primary Care Provider: Mukesh Reyes Discharge Orders/Prescriptions Prescriptions: New atorvastatin 40 mg Tablet 40 mg PO QHS Qty: 0 RF: 0 clopidogrel 75 mg Tablet 75 mg PO DAILY Qty: 0 RF: 0 aspirin 81 mg Tablet,Chewable 81 mg PO BREAKFAST Qty: 0 RF: 0 Referrals / Follow Up: Mukesh Reyes MD [Primary Care Provider] - (upon discharge from TCU) Disposition Disposition (needs filled in before D/C Order can be placed): Custodial Facility Documented by User: Dr. Al Garza MD 06/20/21 11:54 Providers Date of Admission: 06/18/21 Reason For Visit: TIA Medications at Discharge Home Medications aspirin 81 mg PO BREAKFAST #0 tab 06/20/21 atorvastatin 40 mg PO QHS #0 tab 06/20/21 clopidogrel 75 mg PO DAILY #0 tab 06/20/21 ABG / Lab / Microbiology Data Result Diagrams: 06/19/21 05:25 06/19/21 05:25 Discharge Plan Admission Admit Date/Time: 06/18/21 14:44 Primary Reason for Your Visit: CVA Attending Provider: Al Garza Primary Care Provider: Mukesh Reyes Discharge Orders/Prescriptions Prescriptions: New atorvastatin 40 mg Tablet 40 mg PO QHS Qty: 0 RF: 0 clopidogrel 75 mg Tablet 75 mg PO DAILY Qty: 0 RF: 0 aspirin 81 mg Tablet,Chewable 81 mg PO BREAKFAST Qty: 0 RF: 0 Referrals / Follow Up: Mukesh Reyes MD [Primary Care Provider] - (upon discharge from TCU) Disposition Disposition (needs filled in before D/C Order can be placed): Custodial Facility Charges/Coding Addendum Addendum: Dr. Garza: I personally reviewed the chart and examined the patient, and agree with the above findings. 71-year-old male who is in fairly good health at home does not take any medications presented to the hospital with left-sided numbness tingling and weakness. He continues to have those systems though the weakness is improved. Echo was unremarkable, MRI demonstrated an acute lacunar infarct in the posterior limb of the right internal capsule, CT of the head and neck was unremarkable. We will continue with Lipitor and aspirin and allow permissive hypertension. Will consult [facility] neurology for recommendations and given his weakness plan for discharge to TCU tomorrow. 06/20/2021: [facility] neurology recommends aspirin and Plavix for 3 weeks and then just aspirin as well as high intensity statin. I discussed this with him and he discussed understanding of the risk benefits of going to the transitional care unit today to start rehab, he is okay with this plan. He is continue to have some left-sided weakness with some numbness and tingling as well though it is much improved from when he had presented to the hospital. Once he is discharged from transitional care unit would recommend outpatient follow-up with neurology as well as his own PCP. Visit Charges OBSV E&M: 10615 Observation care discharge
--- NOTE | 2021-06-20 11:42 | CASEMGMT ---
Patient is ready for discharge to [facility] TCU. Rupal GARCIA
--- NOTE | 2021-06-20 13:04 | NURSING ---
report called to tcu
== END 2021-06-20 10:55 | disposition skilled nursing facility (03) ==
LOC: ED 14:43 → PCU 14:52
PROVIDERS: Admitting Provider Student in an Organized Health Care Education/Training Program; Emergency Provider Emergency Medicine; PCP Family Medicine; Visit Provider Family Medicine
DX: I63.311 Cerebral infarction due to thrombosis of right middle cerebral artery (principal); R53.1 Weakness; I10 Essential (primary) hypertension; F17.210 Nicotine dependence, cigarettes, uncomplicated; R29.705 NIHSS score 5
CPT/HCPCS: 36415; 70450; 70496; 70498; 70551; 71045; 80048; 80061; 83036; 84484; 85025; 85610; 85730; 87426; 92507; 92523; 92526; 92610; 93005; 93306; 94762; 97110; 97162; 97166; 97535; 99218; 99285; 99406; Q9967; A4216; G0378

== ENCOUNTER 2021-06-20 13:50 | Inpatient (IN) | payer MEDICARE, OTHER, SELFPAY ==
[2021-06-20 14:17] VITALS: BP 141/78; PULSE 64; RESP 18; TEMP 36.1; O2SAT 97; BMI 30.1
--- NOTE | 2021-06-20 18:20 | HP.PCM_ITS ---
HPI - General General Date of Admission: 06/20/21 HPI Narrative 06/18/2021 WESTON MCKINLEY, is a 71 Male who presents to [facility] Emergency Department with neurologic signs, symptoms. 06/18/2021 EKG normal sinus rhythm, poor R wave progression. Left sided weakness, stroke alert activated. CT brain negative, CTA head/neck normal, Left sided weakness resolved. Not TPA candidate due to resolution of symptoms. 06/18/2021 Admit to Hospital. Check lipids, A1c, MRI brain, aspirin 81mg daily, High intensity statin for stroke. PT/OT. Permissive hypertension, treat if elevated next day. 06/19/2021 Echo normal LV size. Left ventricular systolic function normal. EF 60%. Stage 1 diastolic dysfunction. 06/19/2021 Some left sided weakness. PT/OT recommended [facility]. Recommend smoking cessation. 06/19/2021 MRI brain showed acute lacunar infarct posterior limb right internal capsule. 06/19/2021 Teleneurology recommended 3 weeks of Plavix along with chronic aspirin, Atorvastatin. 06/20/2021 Admit to TCU with debility, here for rehabilitation, strengthening, prior to discharge home with . I told resident on admission if he continues to smoke, and drink, his next stroke will either end his life or admit him to custodial permanently. [facility] Medical History (Updated 06/20/21 @ 18:[address] Dre Man MD) Alcohol abuse Debility Dysarthria Hyperlipidemia Hypertension Smoker Tobacco abuse Home Medications aspirin 81 mg PO BREAKFAST 06/20/21 [History Last Taken Unknown] atorvastatin 40 mg PO QHS 06/20/21 [History Last Taken Unknown] clopidogrel 75 mg PO DAILY 06/20/21 [History Last Taken Unknown] Allergy/AdvReac Type Severity Reaction Status Date / Time No Known Allergies Allergy Verified 06/18/21 14:34 Surgical History (Updated 06/20/21 @ 18:[address] Dre Man MD) S/P correction of deviated nasal septum Social History (Updated 06/18/21 @ 15:58 by Alejandra Garcia) household members: spouse housing: house Smoking Status: Current every day smoker tobacco type: cigarettes Tobacco: How many years used: 50 (1ppd) alcohol intake: current details: 3 whiskey drinks/day ROS Constitutional Constitutional: Denies chills, fever(s) or weight gain ENT HEENT: Denies headache(s), nasal congestion or nasal discharge Cardiovascular Cardiovascular: Denies chest pain or palpitations Respiratory/Chest Respiratory/Chest: Denies cough, excessive phlegm production or shortness of breath with exertion Gastrointestinal Gastrointestinal: Denies abdominal pain, nausea or vomiting Genitourinary Genitourinary: Denies dysuria Musculoskeletal Musculoskeletal: Denies joint pain or joint swelling Integumentary Integumentary: Denies rash or wounds Neurologic Neurologic: Reports focal weakness and weakness; Denies numbness or tingling Psychiatric Psychiatric: Denies anxiety, auditory hallucinations, depression, homicidal ideation or suicidal ideation Vital Signs Vital Signs Vital Signs: 06/20/21 14:17 Temperature 96.9 F L Temperature Source Temporal Pulse Rate 64 Pulse Rhythm Regular Pulse Strength Normal (2+) Respiratory Rate 18 Respiratory Effort Normal Respiratory Depth Normal Respiratory Pattern Normal Blood Pressure 141/78 H Blood Pressure Mean 99 Blood Pressure Source Monitor Blood Pressure Position Semi-Fowlers Blood Pressure Location Left Arm Pulse Ox 97 Oxygen Delivery Method Room Air Weight Weight: 95.254 kg Body Mass Index (BMI) 30.1 Physical Exam Const alert and oriented x3 General Appearance: cooperative HEENT normocephalic Eyes PERRL and EOMs intact bilaterally Neck supple, no JVD and no carotid bruits Resp normal respiratory effort, normal air movement and clear to auscultation bilaterally Cardio regular rate and regular rhythm GI normal to inspection, nondistended, normoactive bowel sounds, non-tender and non-distended Extremity normal capillary refill General Extremity: Negative for edema Skin no rashes or lesions noted General Skin Exam: no breakdown Neuro Neuro Narrative: Left hemiparesis. Psych affect normal Appearance: appropriate Assessment & Plan Assessment/Plan (1) Acute CVA (cerebrovascular accident): (2) Debility: (3) Hypertension: (4) Hyperlipidemia: (5) Dysarthria: (6) Tobacco abuse: (7) Alcohol abuse: PLAN: 71 year old male with below past medical history hospitalized for right sided stroke, left hemiparesis, admitted to TCU with debility, here for rehabilitation, strengthening, prior to discharge home with . * Debility - PT/OT. * Dysarthria - ST. * Pain - Tylenol 1000mg q6h prn pain (1-10), * Bowel - Senna/colace 1 tablet bid, Dulcolax 10mg daily prn. * Adult immunization - Administer prevnar 13, pneumovax 23, fluzone, covid19 va ccine as appropriate. * DVT prophylaxis - Hold, on dual antiplatet therapy. * Stroke - Aspirin 81mg daily, Plavix 75mg daily x 21 days. * Hyperlipidemia - Atorvastatin 40mg daily. * Hypertension - Monitor and treat to keep blood pressure less than 140/90.
[2021-06-20] MEDS: Atorvastatin Calcium 40 MG Tablet PO (20:27)
[2021-06-21 05:00] VITALS: BP 140/65; PULSE 60; RESP 18; TEMP 36.1; O2SAT 94
[2021-06-21 05:30] LABS: Absolute Lymphocyte Count 2.38 X10^3/uL (0.83-4.51); Absolute Neutrophil Count 4.7 X10^3/uL (2.0-7.7); Basophil# 0.05 X10^3/uL; Basophil% 0.6 % (0-1); Eosinophil# 0.18 X10^3/uL; Eosinophils% 2.2 % (0-5); Hematocrit 49.9 % (40-54); Hemoglobin 16.6 g/dL (13.0-16.5); Lymphocyte # 2.38 X10^3/ul (0.83-4.51); Lymphocyte % 29.4 % (19-41); Mean Corp Hgb Conc 33.3 g/dL (32-36); Mean Corpuscular Volume 90.2 fL (80-94); Monocyte# 0.75 X10^3/uL; Monocyte% 9.3 % (0-10); NRBC Flagged by Analyzer 0 % (0-5); Neutrophil # 4.71 X10^3/uL (2.7-7.7); Neutrophil % 58.3 % (47-70); Platelet Count 204 K/mm3 (150-450); RBC Distribution Width CV 12.1 % (11.6-14.6); RBC Distribution Width SD 39.8 fl (35.1-43.9); Red Blood Count 5.53 M/mm3 (4.6-6.2); White Blood Count 8.1 K/mm3 (4.4-11.0)
[2021-06-21 05:39] LABS: Anion Gap 8 (5-15); BUN 18 mg/dL (7-18); Chloride 106 mmol/L (98-107); Creatinine, Serum 1.06 mg/dL (0.70-1.30); EST Glomerular Filtration Rate 73 mL/min (>60); Est Glom Filt Rate - Afr Amer 88 mL/min (>60); Estimated Creatinine Clearance 64.09 ml/min; Glucose 92 mg/dL (74-106); Potassium 4.2 mmol/L (3.5-5.1); Sodium Level 139 mmol/L (136-145)
[2021-06-21] MEDS: Clopidogrel Bisulfate 75 MG Tablet PO (06:29)
[2021-06-21] MEDS: Senna/Docusate Sodium 1 Tablet PO ×2 (06:30→17:00)
[2021-06-21] MEDS: Aspirin 81 MG TAB.CHEW PO (08:31)
[2021-06-21] MEDS: Tuberculin,Purif.prot.deriv. 50 TU/ML Vial 0.1 ML ID (09:50)
[2021-06-21 12:45] VITALS: BP 141/62; PULSE 89; RESP 16; TEMP 36.6; O2SAT 92
--- NOTE | 2021-06-21 12:59 | MDS.RN ---
Resident, and spouse-Marly, notified of 2 staff members testing positive for Covid.
--- NOTE | 2021-06-21 13:20 | CASEMGMT ---
Social Work Met with patient for initial assessment. Discussed code status. Pt confirmed full code. MOLST form completed, communication to , placed in chart. Explained Medicare benefit. Encouraged to contact secondary insurance to ensure copay coverage. The goal is for pt to return home with his . He states he can have a first floor set up if needed. 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 Conversed about career. SW to continue to follow. Radha Billings, TIMBER INCISOR OPERATOR UNIT DIRECTOR
[2021-06-21] MEDS: Atorvastatin Calcium 40 MG Tablet PO (20:00)
[2021-06-22] MEDS: Clopidogrel Bisulfate 75 MG Tablet PO (05:15)
[2021-06-22] MEDS: Senna/Docusate Sodium 1 Tablet PO (05:15)
[2021-06-22] MEDS: Aspirin 81 MG TAB.CHEW PO (07:50)
--- NOTE | 2021-06-22 13:39 | PCM.PN.RX ---
Progress Note - Pharmacy Subjective: TCU Admission Objective: Allergies No Known Allergies Allergy (Verified 06/18/21 14:34) Current Medications Generic Name Dose Route Start Last Admin Trade Name Freq PRN Reason Stop Dose Admin Acetaminophen 1,000 mg 06/20/21 18:36 Acetaminophen 500 Mg Tablet PO Q6H PRN PRN Pain Score 1-10 Aspirin 81 mg 06/21/21 08:00 06/22/21 07:50 Aspirin 81 Mg Tab.Chew PO 81 mg BREAKFAST ROHIT Administration Atorvastatin Calcium 40 mg 06/20/21 22:00 06/21/21 20:00 Atorvastatin Calcium 40 Mg Tablet PO 40 mg QHS ROHIT Administration Bisacodyl 10 mg 06/20/21 14:59 Bisacodyl 10 Mg Suppository RC X1 PRN Constipation Clopidogrel Bisulfate 75 mg 06/21/21 06:00 06/22/21 05:15 Clopidogrel Bisulfate 75 Mg Tablet PO 07/12/21 06:01 75 mg DAILY ROHIT Administration Psyllium Hydrophilic Mucilloid 1 packet 06/22/21 22:00 Psyllium 1 Packet PO QHS ROHIT Senna/Docusate Sodium 1 tablet 06/21/21 06:00 06/22/21 05:15 Senna/Docusate Sodium 1 Tablet PO 1 tablet BID ROHIT Administration Tuberculin PPD 0.1 ml 06/28/21 10:00 Tuberculin,Purif.Prot.Deriv. 50 Tu/Ml Vial ID 06/28/21 10:01 X1 ONE Problem List (Last Updated 06/20/21 @ 18:[address] Dre Man MD) Alcohol abuse (Acute) Tobacco abuse (Acute) Dysarthria (Acute) Hyperlipidemia (Acute) Hypertension (Chronic) Debility (Acute) Acute CVA (cerebrovascular accident) (Acute) Vital Signs Temp Pulse Resp BP Pulse Ox 97.8 F 89 16 141/62 H 92 06/21/21 12:45 06/21/21 12:45 06/21/21 12:45 06/21/21 12:45 06/21/21 12:45 Oxygen Delivery Method Room Air Weight: 95.254 kg Body Mass Index (BMI) 30.1 Sodium 139 mmol/L (136-145) 06/21/21 05:15 Potassium 4.2 mmol/L (3.5-5.1) 06/21/21 05:15 Chloride 106 mmol/L (98-107) 06/21/21 05:15 Carbon Dioxide 25.0 mmol/L (21.0-32.0) 06/21/21 05:15 Anion Gap 8 (5-15) 06/21/21 05:15 BUN 18 mg/dL (7-18) 06/21/21 05:15 Creatinine 1.06 mg/dL (0.70-1.30) 06/21/21 05:15 Est GFR (MDRD) Af Amer 88 mL/min (>60) 06/21/21 05:15 Est GFR (MDRD) Non-Af 73 mL/min (>60) 06/21/21 05:15 BUN/Creatinine Ratio 17.0 RATIO (10-20) 06/21/21 05:15 Glucose 92 mg/dL (74-106) 06/21/21 05:15 Assessment/Plan: 1. Pain: acetaminophen 1000mg PO Q6H PRN pain 1-04/09. Please continue to monitor for increased pain and PRN usage. 2. Stroke: aspirin 81mg PO breakfast and clopidogrel 75mg PO daily thru 07/12/21. Please continue to monitor for S/S of bleeding and hemoglobin (last 16.6g/dL). 3. Hyperlipidemia: atorvastatin 40mg PO QHS. Please continue to monitor lipid panel (last 06/19/21) and for muscle pain. Psychotropic Medications: None Unnecessary Medications: None Bowel Regimen: senna/docusate 1T PO BID, psyllium 1 packet PO QHS and bisacodyl 10mg RC x1 PRN constipation. Please continue to monitor for S/S of constipation/diarrhea and PRN usage. Date of Note:: 06/22/21
--- NOTE | 2021-06-22 14:09 | NURSING ---
Informed resident of staff members testing positive for COVID.
--- NOTE | 2021-06-22 14:40 | CHAPLAIN ---
Type of Pastoral Visit _x__ Initial Visit ___ Follow-up Visit ___ On-call Visit ___ General Patient Visit ___ Spiritual Assessment ___ Family Conference ___ Bereavement ___ Rapid Response ___ Code Blue ___ Other (describe below) Pastoral Care Referral From _x__ Patient ___ Family ___ Nurse ___ Physician ___ Administrative Support Coordinator ___ Reject Opener And Filler ___ Other (describe below) Sacrament/Intervention _x__ Active listening ___ Anointing ___ Sabianist ___ Bereavement ___ Communion _x__ Bebe exploration ___ _x__ Life review _x__ Prayer ___ Reconciliation ___ Sacrament of Sick _x__ Supportive presence ___ Wedding ___ Other (describe below) Pastoral Comments patient has good support from family and friends; pt is long time member of [employer]; pt has no concerns at this time; pt hopes that the stay in TCU will be shorter rather than longer
[2021-06-22 15:36] VITALS: BP 127/66; PULSE 86; RESP 18; TEMP 36.3; O2SAT 95
[2021-06-22] MEDS: Psyllium 1 PACKET PO (20:34)
[2021-06-22] MEDS: Atorvastatin Calcium 40 MG Tablet PO (20:34)
[2021-06-22 20:38] VITALS: PULSE 71; RESP 14; O2SAT 96
[2021-06-23] MEDS: Clopidogrel Bisulfate 75 MG Tablet PO (05:47)
[2021-06-23] MEDS: Senna/Docusate Sodium 1 Tablet PO (05:47)
[2021-06-23] MEDS: Aspirin 81 MG TAB.CHEW PO (10:07)
[2021-06-23 16:00] VITALS: BP 132/74; PULSE 74; RESP 16; TEMP 36.6; O2SAT 96
[2021-06-23] MEDS: Atorvastatin Calcium 40 MG Tablet PO (20:48)
[2021-06-23] MEDS: Psyllium 1 PACKET PO (20:48)
[2021-06-24] MEDS: Clopidogrel Bisulfate 75 MG Tablet PO (05:11)
[2021-06-24] MEDS: Aspirin 81 MG TAB.CHEW PO (07:51)
[2021-06-24 10:08] VITALS: PULSE 99; O2SAT 99
[2021-06-24 14:09] VITALS: BP 128/72; PULSE 63; RESP 18; TEMP 36.1; O2SAT 95
[2021-06-24] MEDS: Psyllium 1 PACKET PO (21:08)
[2021-06-24] MEDS: Atorvastatin Calcium 40 MG Tablet PO (21:08)
[2021-06-25] MEDS: Clopidogrel Bisulfate 75 MG Tablet PO (05:15)
[2021-06-25 05:19] VITALS: BP 124/67; PULSE 60
[2021-06-25] MEDS: Aspirin 81 MG TAB.CHEW PO (08:04)
[2021-06-25 12:33] VITALS: BP 134/72; PULSE 70; RESP 16; TEMP 36.4; O2SAT 92
[2021-06-25 20:17] VITALS: PULSE 64; RESP 16; O2SAT 95
[2021-06-25] MEDS: Psyllium 1 PACKET PO (22:18)
[2021-06-25] MEDS: Atorvastatin Calcium 40 MG Tablet PO (22:18)
[2021-06-26] MEDS: Clopidogrel Bisulfate 75 MG Tablet PO (05:20)
[2021-06-26] MEDS: Aspirin 81 MG TAB.CHEW PO (08:28)
[2021-06-26 10:00] VITALS: PULSE 72; RESP 18; O2SAT 97
--- NOTE | 2021-06-26 12:23 | CASEMGMT ---
Social Work Brief interview for mental status (BIMS) and resident mood interview (PHQ-9) completed on this day. BIMS score . PHQ-9 score . Meliza PAZ, [place]
--- NOTE | 2021-06-26 12:24 | CASEMGMT ---
Addendum entered by Radha Billings 06/27/21 10:24: Faxed order to [employer]. Original Note: Social Work Met with patient and patient spouse in room. Patient request for discharge date to be set for 06/27/2021. Team agreeable to discharge date. Patient plans to discharge to home with spouse. Physical and Speech therapy recommending for patient to continue with therapy through outpatient services. Patient is agreeable to recommendation and request for home health services to be set up through [facility]. Patient spouse reports to have all needed DME already set up in the home and denies any DME needs for patient. Patient spouse to provide transportation to home. Team update on above plan. Order for outpatient therapy services placed in Dr. Fernando box to be signed. Will fax to [facility] when signature is obtained. Proposed discharge date: 06/27/2021 PLAN: Discharge to home with spouse and outpatient therapy services. Meliza PAZ, [place]
[2021-06-26 13:04] VITALS: BP 146/72; PULSE 72; RESP 18; TEMP 36.9; O2SAT 97
[2021-06-26] MEDS: Psyllium 1 PACKET PO (21:02)
[2021-06-26] MEDS: Atorvastatin Calcium 40 MG Tablet PO (21:02)
[2021-06-27] MEDS: Clopidogrel Bisulfate 75 MG Tablet PO (04:51)
--- NOTE | 2021-06-27 08:10 | PCM.DC.SUM ---
Providers Date of Admission: 06/20/21 Primary Care Physician: Dr. Mukesh Reyes MD Reason For Visit: TIA Diagnosis Discharge Diagnosis (1) Acute CVA (cerebrovascular accident): Status: Acute Code(s): I63.9 - Cerebral infarction, unspecified (2) Debility: Status: Acute Code(s): R53.81 - Other malaise (3) Hypertension: Status: Chronic Code(s): I10 - Essential (primary) hypertension (4) Hyperlipidemia: Status: Acute Code(s): E78.5 - Hyperlipidemia, unspecified (5) Dysarthria: Status: Acute Code(s): R47.1 - Dysarthria and anarthria (6) Tobacco abuse: Status: Acute Code(s): Z72.0 - Tobacco use (7) Alcohol abuse: Status: Acute Code(s): F10.10 - Alcohol abuse, uncomplicated Medications at Discharge Home Medications aspirin 81 mg PO BREAKFAST 06/20/21 atorvastatin 40 mg PO QHS 30 Days #30 tab 06/27/21 clopidogrel 75 mg PO DAILY 11 Days #11 tab 06/27/21 Hospital Course Operations None Procedures None Summary of Care Provided Minutes Spent on Discharge: 35 Hospital Course: 71 year old male with below past medical history hospitalized for right sided stroke, left hemiparesis, admitted to TCU with debility, here for rehabilitation, strengthening, prior to discharge home with . Discharge home with , outpatient PT/ST. Physical Exam Const alert and oriented x3 General Appearance: cooperative HEENT normocephalic Eyes PERRL and EOMs intact bilaterally Neck supple, no JVD and no carotid bruits Resp normal respiratory effort, normal air movement and clear to auscultation bilaterally Cardio regular rate and regular rhythm GI normal to inspection, nondistended, normoactive bowel sounds, non-tender and non-distended Extremity normal capillary refill General Extremity: Negative for edema Skin no rashes or lesions noted General Skin Exam: no breakdown Psych affect normal Appearance: appropriate Weight / BMI Weight Weight: 95.254 kg Body Mass Index (BMI) 30.1 ABG / Lab / Microbiology Data Result Diagrams: 06/21/21 05:15 06/21/21 05:15 D/C Instructions Discharge Diet: No restrictions Discharge Activity: Return to Normal Activity May resume sexual activity in: No Restrictions Weight Bearing Status: Weight bearing as tolerated Call your doctor if you observe: Fever of 101 or Higher, Inability to urinate, Inability to have a bowel movement, Shortness of breath, Dizziness, Fainting spells, Swelling in the ankles, Chest pain and Uncontrolled pain Additional Instructions: Discharge home with , outpatient PT/ST. Please Follow Up With: Mukesh Reyes MD When: 1 week. Meaningful Use Info Meaningful Use Diagnoses (Choose all that apply): Ischemic CVA CVA Therapy Assessed for PT,OT and/or ST?: Yes Ischemic Stroke Antithrombotic order at d/c?: Yes Dx of Atrial fib/flutter?: No Statins at discharge?: Yes Primary Dx Acute Ischemic CVA?: Yes IV tPA ordered during stay?: No Reason IV t-PA not ordered: Treatment not Indicated Discharge Plan Admission Admit Date/Time: 06/20/21 13:50 Primary Reason for Your Visit: Debility. Attending Provider: Dre Man Chi Primary Care Provider: Mukesh Reyes Instructions Additional Instructions / Restrictions: Discharge home with , outpatient PT/ST. Discharge Orders/Prescriptions Prescriptions: Continued aspirin 81 mg tablet,chewable 81 mg PO BREAKFAST RF: 0 atorvastatin 40 mg tablet 40 mg PO QHS 30 Days Qty: 30 RF: 0 clopidogrel 75 mg tablet 75 mg PO DAILY 11 Days Qty: 11 RF: 0 Referrals / Follow Up: Mukesh Reyes MD [Primary Care Provider] - Disposition Disposition (needs filled in before D/C Order can be placed): Home, Self Care
[2021-06-27] MEDS: Aspirin 81 MG TAB.CHEW PO (08:19)
[2021-06-27 10:00] VITALS: RESP 18
[2021-06-27 12:00] VITALS: BP 139/69; PULSE 61; RESP 18; TEMP 36.1; O2SAT 98
--- NOTE | 2021-07-03 11:26 | MDS.RN ---
Information for the mds was obtained from review of the clinical record, interview of resident, staff, and direct observation of resident's care.
== END 2021-06-27 12:30 | disposition home or self-care (01) | DRG 57 ==
PROVIDERS: Admitting Provider Family Medicine Geriatric Medicine; PCP Family Medicine; Visit Provider Family Medicine Geriatric Medicine
DX: I69.354 Hemiplegia and hemiparesis following cerebral infarction affecting left non-dominant side (principal); E78.5 Hyperlipidemia, unspecified; I10 Essential (primary) hypertension; F17.210 Nicotine dependence, cigarettes, uncomplicated; R47.1 Dysarthria and anarthria; F10.10 Alcohol abuse, uncomplicated; Z79.02 Long term (current) use of antithrombotics/antiplatelets; Z79.899 Other long term (current) drug therapy; Z79.82 Long term (current) use of aspirin
CPT/HCPCS: 36415; 80048; 85025; 87635; 92507; 92523; 92526; 92610; 97110; 97116; 97162; 97166; 97530; 97535; 97802; U0003

== ENCOUNTER 2021-09-28 09:30 | Outpatient (RCR) | payer MEDICARE, OTHER, SELFPAY ==
--- NOTE | 2021-07-03 09:57 | HP.PTEVAL_ITS ---
Patient's Visit Information WESTON MCKINLEY is a 71 year old M referred to Physical Therapy by Dr. Dre Man MD with a diagnosis of CVA. Date of Evaluation: 07/03/21 Physical Therapist: Long Olson DPT, OCS, CSCS - Visit Plan Frequency: 3x /Week Duration: 4-6 Weeks Plan: 3x/week for 3-4 week for: 1. proprioceptive and coordination ex for L LE. 2. strength L LE and UE. 3. Gait training awith balance challenges steps, turn, etc. progress HEP - Subjective I had a stroke 2 weeks ago. L side got numb arm and leg. Went to ER and did Cats an and MRI next day. present today. Was in hospital 8 days and home last Saturday form U. L arm is still weak as is L leg including some tingly. Needs to use cane to walk due to balance. Arm works well it is just tingly. Overall 75% better overall. 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 Will go back to that. Basic aDLs are getting done at home with dressing and going to bathroom slowly. Has walker but does not need it anymore. Has a couple stairs at home with railings and doing them OK. Hobbies include work and golf. Sleep is good. No pain, no dizzyness. Just tingly in left arm and leg. - Objective Walks slowly with cane in R UE 150 feet to ev al room. transfers bed and chair I. Steps with rail reciprocal slowly and places part of L foot on next step but mod I up and down. slight weakness descending with L. Tightness present in B hamstrings and quads and hip flexors. AROM LE and UE WNL, slow B. reflexes 2/3 bi, tri, patella and achilles B. sensation WNL to gross lgiht touch, prorioception defictis L LE vs R in SLS. coordination to reciprocal toe and heel tap L and heel to david is worse L vs R. Strength is 4/5 B LE and UE without obvious asymmetries. - Balance/Special Test Scores Functional Gait Assessment Score: 23 % Disability: 23.3400 Lower Extremity Functional Score: 31 - Goals Goal 1:: Pt I appropriate HEP to minimize future problems Goal Time Frame: 2-4 Weeks Goal 2:: Pt feel 99% back to normal with gait and mobility Goal Time Frame: 4-6 Weeks Goal 3:: Pt ready to return to work without deficits Goal Time Frame: 4-6 Weeks Goal 4:: Able to take trip to [place] at end july with confidence Goal Time Frame: 2-4 Weeks Goal 5:: FGA to diminish fallr isk. Goal Time Frame: 2-4 Weeks - Rehabilitation Potential Physical Therapy Diagnosis: CVA weith L sided proprioceptive deficits/coordination and diminished confidence with gait. Rehabilitation Potential: Good - Anticipated Interventions Patient/Client Instruction: Educate patient on: Condition, Plan of Care For the Purpose of:: To improve nutrient delivery to tissue, To improve muscle performance and motor function, To increase tolerance to activity/condition /position, To improve ability of physical actions for home/community/work/leisure, To improve gait and locomotor functions Therapeutic Exercise to Include: Strength training, Balance training, Gait and locomotor training For the Purpose of:: To improve muscle performance and motor function, To increase tolerance to activity/condition/position, To improve ability of physical actions for home/community/work/leisure, To improve gait and locomotor functions, To improve safety Thank you for the opportunity to evaluate your patient. For Medicare and Medicare HMO plans, please review the plan of care and approve it. It will need to be FAXED BACK to us at [phone] for Medicare purposes. For Medicare only, by signing this I certify the plan of care. Please let me know if there are questions or concerns regarding this plan of care. Physician Signature: Date:
--- NOTE | 2021-07-03 11:54 | HP.SP.AD ---
History - History Date of Eval: 07/03/21 Medical Diagnosis (from RX): CVA (I63.9); Debility (R53.81); L Side Hemiplegia (G81.92) Date of Onset of Diagnosis: 06/18/21 Previous speech therapy: Yes Results: Per TCU speech therapy d/c summary: Pt has completed education regarding speech intelligibility strategies, including slowing rate of speech during conversation, over articulating words, and using increased volume. Pt has been able to demonstrate understanding of oropharyngeal strengthening exercises and completes as carryover. Pt has completed education regarding compensatory swallowing strategies including HOB 90 degrees, small bite, small sip, and alternating bite and sip. 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 Rx at d/c included continued skilled ST intervention targeting dysarthria for improved speech intelligibility to be able to continue to function successfully with his career. Pt to continued with compensatory strategies for swallowing to decrease risk of aspiration. Per chart review Pt also participated in skilled cognitive testing via completion of the LUCINA-III with a score WNL across all categories, total: 92/100. Other Relevant Medical History/Diagnoses/Surgery: WESTON MCKINLEY is a 71 yo male who presents to [facility] on 07/03/21 for speech therapy evaluation secondary to dx of dysarthria. Pt d/c from the transitional care unit at [facility] on 06/27/21 following one week of skilled speech therapy targeting dysarthria and dysphagia. See below for detailed medical hx of Pt's stay on the TCU. 06/18/2021 WESTON CMKINLEY, is a 71 Male who presents to [facility] Emergency Department with neurologic signs, symptoms. 06/18/2021 EKG normal sinus rhythm, poor R wave progression. Left sided weakness, stroke alert activated. CT brain negative, CTA head/neck normal, Left sided weakness resolved. Not TPA candidate due to resolution of symptoms. 06/18/2021 Admit to Hospital. Check lipids, A1c, MRI brain, aspirin 81mg daily, High intensity statin for stroke. PT/OT. Permissive hypertension, treat if elevated next day. 06/19/2021 Echo normal LV size. Left ventricular systolic function normal. EF 60%. Stage 1 diastolic dysfunction. 06/19/2021 Some left sided weakness. PT/OT recommended [facility]. Recommend smoking cessation. 06/19/2021 MRI brain showed acute lacunar infarct posterior limb right internal capsule. 06/19/2021 Teleneurology recommended 3 weeks of Plavix along with chronic aspirin, Atorvastatin. 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 Patients Living Arrangements: With Significant Other Patient Allergies - Allergies Allergies No Known Allergies Allergy (Verified 06/18/21 14:34) Objective Oral Motor - Labial Pucker: Mild Retraction: Mild Alternating Pucker/Retraction: Mild - Respiratory Status Respiratory Status: Room Air Objective Dysarthira/Motor - Speech Intelligibility Phonemes: WFL Single Words: WFL Phrases: WFL Sentences: WFL Paragraphs: WFL Conversation: WFL - Volume Volume: WFL - Sounds Sounds in Error: Pt completed diadochokinetic rate tasks with functional rate, articulation, and volume for individual P, T, and K phonemes. During alternating pataka task Pt with slower rate than would be expected given his profession however as Pt slowed down slightly, articulation improved. Handout of each phoneme combination was provided. Pt demonstrated mild difficulties with speech during short auctioneer voice practice, however Pt reporting this was not concerning to him. Encouraged Pt to continue with oral motor exercise handout provided to him at the hospital for 4-5x a day. - Consistency w/Multiple Repetitions Words: WFL Phrases: WFL - Observation Observation of Apraxia of Speech: No Oral Groping for Placement: No Inconsistent Errors: No - Awareness/Strategy Use Uses strategies effectively and consistently to improve intelligibility or listener's understanding of message: Yes - Comments Diadochokinetic Rate -: Pt completed diadochokinetic rate tasks with functional rate, articulation, and volume for individual P, T, and K phonemes. During alternating pataka task Pt with slower rate than would be expected given his profession however as Pt slowed down slightly, articulation improved. Handout of each phoneme combination was provided for home exercise program. Plan - Plan Plan: Will recommend Pt for 1x follow-up outpatient speech therapy intervention to address very mild dysarthria. Pt provided with oral motor home exercises. Scheduling 1x follow-up Pt begin experience new cognitive or speech difficulties, however per Pt report, success during TCU admission, and participation in conversation today, suspect Pt to be at baseline. - Recommendations MBS: No Treatment Warranted: Yes - Frequency Frequency: 1x/Week Duration: 1 Week Visits in this POC: 1x Followup - Prognosis Prognosis: Excellent - Goals that are Established: Determination:: Goals will be added/modified as deemed necessary and appropriate. Therapy will be discontinued when results of re-evaluation indicate therapy is no longer needed or lack of progress has been documented. - Goal #1-5 Goal #1: Pt will participate in 1x follow-up session following time at home and practicing for auctioneering job to determine appropriateness for speech therapy pending new challenges with cognition, speech, or swallowing. Education - Patient has Indicated that the Following Identified Educational Needs: None The Patient has indicated that they have no educational or learning abilities that may effect their care.: Yes - Patient Instruction Patient Education: Diagnosis, Treatment Plan, Home Exercise Program Person Taught: Patient Teaching Method: Discussion, Demonstration, Handout Response to teaching: Return demonstration, Verbalize understanding, Has Prior Knowledge
--- NOTE | 2021-07-24 10:57 | HP.PTREVAL ---
Dr. Dre Man MD, It has been my pleasure to treat WESTON MCKINLEY over the last 10 visits for CVA. Please see the progress note below for an update on the physical therapy plan of care! Subjective: Working hard and getting better 70%. Balance is improving but doesn't feel back to normal yet. Strength is not too bad. No pain, no dizzyness. Activities at home but not doing much, is able to sit at desk and work. hasn't been out much due to this weather. 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 Doing home exercises a little bit at home. Sleep is OK. [place]. Will be doing a lot of walking while he is gone. HEP includes sink exercises including SLS. Objective/Function: Pt +3 on FGA and doing well with walking, has diminished confidence with less push off on L LE but ambulates I without AD. Trasnfers I, steps without rail I. Slow yaw but likely normal for him. Overall doing well. Still lw confidence in L LE but good function. Appropriate to continue but patient will be going to [place] and unavailable for two weeks. Plan Plan: Pt to [place] and unavailable for two weeks. Plan to f/u upon his return to see if still needs further therapy. he woill do ex and lots of walking while gone. Balance/Gait/Functional tests - Balance/Special Test Scores Functional Gait Assessment Score: 27 % Disability: 10.0000 Lower Extremity Functional Score: 52 Goals Goal 1:: Pt I appropriate HEP to minimize future problems Goal Time Frame: 2-4 Weeks Goal Progress: part met. Goal 2:: Pt feel 99% back to normal with gait and mobility Goal Time Frame: 4-6 Weeks Goal Progress: 70% Goal 3:: Pt ready to return to work without deficits Goal Time Frame: 4-6 Weeks Goal Progress: Progressing Goal 4:: Able to take trip to [place] at end of July with confidence Goal Time Frame: 2-4 Weeks Goal Progress: Goal Met Goal 5:: FGA 25/ to diminish fallr isk. Goal Time Frame: 2-4 Weeks Goal Progress: Goal Met Anticipated Interventions Patient/Client Instruction: Educate patient on: Condition, Plan of Care For the Purpose of:: To improve nutrient delivery to tissue, To improve muscle performance and motor function, To increase tolerance to activity/condition/position, To improve ability of physical actions for home/community/work/leisure, To improve gait and locomotor functions Therapeutic Exercise to Include: Strength training, Balance training, Gait and locomotor training For the Purpose of:: To improve muscle performance and motor function, To increase tolerance to activity/condition/position, To improve ability of physical actions for home/community/work/leisure, To improve gait and locomotor functions, To improve safety Please do not hesitate to contact me at [phone] by phone or if you have questions or concerns regarding this new plan of care! Sincerely, Long Olson, DPT, OCS, CSCS
--- NOTE | 2021-07-24 11:33 | HP.SP.DC_ITS ---
ST Discharge Summary - Discharged: Discharge: Pt was seen for initial speech/language evaluation at [facility] on 07/03/21 s/p CVA. Pt attended 1 follow-up session to discuss progress from initial evaluation where Pt was suspected to be at baseline functioning with his conversational speech intelligibility. 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 Pt provided w/home carry over activity suggestions ? Pt receptive to education. Pt discharged from speech therapy caseload on this date, 07/03/21 per [employer]ER discretion and Pt?s request. Thank you for allowing me to participate the care of your Pt. Will reevaluate at Pt?s request following script from physician.
--- NOTE | 2021-08-08 11:01 | HP.PTREVAL ---
Dr. Dre Man MD, It has been my pleasure to treat WESTON MCKINLEY over the last 11 visits for CVA. Please see the progress note below for an update on the physical therapy plan of care! Subjective: Functioned Ok in [place] but weather was cold adn did not do a wholke lot. Had no function al problems in [place]. Not strict on HEP while gone. 90% better overall. Activities are pretty normal. Sleep is OK. 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 L leg feels tingly as does upper arm. Can do anything with it though. Objective/Function: Avoids push off with L at end of stance until cued. Strong enough to do L heel raises with balance assist., slightly weaker L on steps but no rail needed. Tired after steps and FGA test. Feels fatigued sooner than he should subjectively in his day. Wishes to continue 2x/week as his work schedule and activity gets busier. He is appropriate for this. With fair prognosis toward same goals. Plan Plan: 2x/weeek for 3 weeks for. strength L gastroc and LE, progression of funcitonal HEP. Work on gait with push off L and steps. 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 Goal 4:: Able to take trip to [place] at end of July with confidence Goal Time Frame: 2-4 Weeks Goal Progress: Goal Met Goal 5:: FGA 25/30 to diminish fallr isk. 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 Time Frame: 2-4 Weeks Goal Progress: NEW GOAL Anticipated Interventions Patient/Client Instruction: Educate patient on: Condition, Plan of Care For the Purpose of:: To improve nutrient delivery to tissue, To improve muscle performance and motor function, To increase tolerance to activity/condition/position, To improve ability of physical actions for home/community/work/leisure, To improve gait and locomotor functions Therapeutic Exercise to Include: Strength training, Balance training, Gait and locomotor training For the Purpose of:: To improve muscle performance and motor function, To increase tolerance to activity/condition/position, To improve ability of physical actions for home/community/work/leisure, To improve gait and locomotor functions, To improve safety Please do not hesitate to contact me at [phone] by phone or if you have questions or concerns regarding this new plan of care! Sincerely, Long Olson, DPT, OCS, CSCS
--- NOTE | 2021-08-30 10:57 | HP.PTREVAL_ITS ---
Dr. Dre Man MD, It has been my pleasure to treat WESTON MCKINLEY over the last 18 visits for CVA. Please see the progress note below for an update on the physical therapy plan of care! Subjective: Getting alot stronger. Gait still doesn't feel perfect. Doing HEP at home with sink exercises. L knee snaps sometimes with knee curls but no pain. 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 Getting there. Feels like he could do an hour and will try this week. Speech is pretty good. Objective/Function: FGA improving, patient still hesitant with sideways movement and stepping over. Improving balance. Walking is improved adn heel raise still weaker on L which may cause issues when tired. FGA improved. 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 Steps and strength of LE. 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 Goal Time Frame: 2-4 Weeks Goal Progress: NEW GOAL Goal 5:: FGA 25/30 to diminish fallr isk. 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 Time Frame: 2-4 Weeks Goal Progress: Goal Met Anticipated Interventions Patient/Client Instruction: Educate patient on: Condition, Plan of Care For the Purpose of:: To improve nutrient delivery to tissue, To improve muscle performance and motor function, To increase tolerance to activity/condition/po sition, To improve ability of physical actions for home/community/work/leisure, To improve gait and locomotor functions Therapeutic Exercise to Include: Strength training, Balance training, Gait and locomotor training For the Purpose of:: To improve muscle performance and motor function, To increase tolerance to activity/condition/position, To improve ability of physical actions for home/community/work/leisure, To improve gait and locomotor functions, To improve safety Please do not hesitate to contact me at [phone] by phone or Fax: if you have questions or concerns regarding this new plan of care! Sincerely, Long Olson, DPT, OCS, CSCS
--- NOTE | 2021-09-28 10:24 | HP.PTDCSUM ---
It has been my pleasure to treat WESTON MCKINLEY referred by Dr. Mukesh Reyes MD, with the diagnosis of CVA for a total of 24 visit(s). Discharge Date: 09/28/21 Please see the following information for a summary of their discharge status. Subjective: Getting there. Still not running. Working without problems, gets fatigued easily with work. Workout at works him good. L leg drags a little when he gets tired. No falls lately, no trips. Nothing scheduled with doctor until November. % Improvement: 95 Objective/Function: Walking I and safe, some obvious L LE motor control deficits vs R but I. Steps reciprocal and one rail needed. Balance with sidestep and step over and BW walk is good. 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 Goal Progress: Goal Met Goal 5:: FGA to diminish fallr isk. 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 Thank you for the referral of this patient. Sincerely, Long Olson, DPT, OCS, CSCS Balance/Gait/Functional tests - Balance/Special Test Scores Functional Gait Assessment Score: 26 % Disability: 13.3400 Lower Extremity Functional Score: 51
== END 2021-09-28 10:51 | disposition home or self-care (01) ==
LOC: PT 09:30
PROVIDERS: PCP Family Medicine; Referring Provider Family Medicine; Visit Provider Family Medicine
DX: I69.354 Hemiplegia and hemiparesis following cerebral infarction affecting left non-dominant side (principal); R53.81 Other malaise; R47.1 Dysarthria and anarthria
CPT/HCPCS: 92507; 92523; 97110; 97116; 97162; 97164; 97530

== ENCOUNTER → 2022-01-02 | Outpatient (CLI) | payer MEDICARE, OTHER, SELFPAY ==
[2022-01-02 13:05] LABS: AST(SGOT) 20 U/L (15-37); Alanine Aminotransfer ALT/SGPT 37 U/L (16-61); Albumin, Serum 3.7 g/dL (3.2-5.0); Alkaline Phosphatase 76 U/L (45-117); Anion Gap 3 (5-15); BUN 13 mg/dL (7-18); BUN/Creat Ratio 13.6 RATIO (10-20); Chloride 108 mmol/L (98-107); Creatinine, Serum 0.96 mg/dL (0.70-1.30); EST Glomerular Filtration Rate 82 mL/min (>60); Est Glom Filt Rate - Afr Amer 99 mL/min (>60); Globulin 3.6 g/dL (2.2-4.2); Glucose 92 mg/dL (74-106); PSA,Total - Annual Screen 1.04 ng/mL (0.00-4.00); Potassium 4.1 mmol/L (3.5-5.1); Protein, Total 7.3 g/dL (6.4-8.2); Sodium Level 139 mmol/L (136-145)
== END | disposition home or self-care (01) ==
LOC: MTLAB 09:48
PROVIDERS: PCP Family Medicine; Referring Provider Family Medicine; Visit Provider Family Medicine
DX: I63.9 Cerebral infarction, unspecified (principal); E78.5 Hyperlipidemia, unspecified; Z12.5 Encounter for screening for malignant neoplasm of prostate; Z80.42 Family history of malignant neoplasm of prostate
CPT/HCPCS: 36415; 80053; 84153; G0103

== ENCOUNTER → 2022-01-23 | Outpatient (CLI) | payer MEDICARE, OTHER, SELFPAY ==
--- NOTE | 2022-01-23 13:39 | CT_ITS ---
STUDY: LOW DOSE CT LUNG CANCER SCREENING REASON FOR EXAM: Male, 71 years old. Lung cancer screening -- 50 pk yr hx; former smoker; asymptomatic RADIATION DOSAGE (If Supplied By Facility): CTDIvol = ( 4.02 ) mGy, DLP = ( 141.95 ) mGycm TECHNIQUE: No contrast was administered. Low dose technique was utilized (average mAS-38 and kVp 120). 1.25 mm axial source images with a slice interval of 1.25-mm were reconstructed in lung windows. 2.5 mm axial source images with a slice interval of 2.5-mm were reconstructed in lung windows. 5.0 mm axial source images with a slice interval of 5.0-mm were reconstructed in soft tissue windows. COMPARISON: None. NODULES: No suspicious nodules are seen. Emphysema: No significant emphysema is present. Endobronchial lesion: None Aorta: Atherosclerotic plaque calcification CORONARY ARTERIES: Coronary artery calcification is seen. Heart: Minimal anterior pericardial thickening. Pulmonary artery: Unremarkable Mediastinal nodes: Small benign-appearing mediastinal lymph nodes. Other chest and abdominal findings: CT/Low Dose CT Lung Screening IMPRESSION: Lung-RADS category 2 - Continue annual screening with LDCT in 12 months. IMPORTANT NOTES FOR USE: ACR Lung-RADS Version 1.1 Assessment Categories Release Date: 2018 Category: Coded 0-4 bases on nodule(s) with highest degree of suspicion. Negative screen is defined as categories 1 and 2; a positive screen is defined as categories 3 and 4. Category 3 and 4A nodules that are unchanged on interval CT should be coded as category 2, and individuals returned to screening in 12 months. Category 4X: Category 3 or 4 nodules with additional imaging findings that increase the suspicion of lung cancer, such as spiculation, GGN that doubles in size in 1 year, enlarged lymph notes, etc. Category Modifiers: S (significant finding unrelated to lung cancer) Electronically Signed: Torrey Garcia MD at 14:14 EDT ,
== END | disposition home or self-care (01) ==
LOC: CT 13:37
PROVIDERS: PCP Family Medicine; Referring Provider Nurse Practitioner Family; Visit Provider Nurse Practitioner Family
DX: Z12.2 Encounter for screening for malignant neoplasm of respiratory organs (principal); Z87.891 Personal history of nicotine dependence
CPT/HCPCS: 71271

== ENCOUNTER → 2022-09-24 | Outpatient (CLI) | payer MEDICARE, OTHER, SELFPAY ==
[2022-09-24 15:49] LABS: AST(SGOT) 22 U/L (15-37); Alanine Aminotransfer ALT/SGPT 34 U/L (16-61); Albumin, Serum 3.6 g/dL (3.2-5.0); Alkaline Phosphatase 58 U/L (45-117); Bilirubin, Direct 0.26 mg/dL (0.00-0.30); Cholesterol 119 mg/dL (200); Globulin 3.6 g/dL (2.2-4.2); High Density Lipoprotein 46 mg/dL; Protein, Total 7.2 g/dL (6.4-8.2); Triglycerides 141 mg/dL; Very Low Density Lipoprotein 28 mg/dL (5-40)
== END | disposition home or self-care (01) ==
LOC: MTLAB 11:16
PROVIDERS: PCP Family Medicine; Referring Provider Family Medicine; Visit Provider Family Medicine
DX: E78.5 Hyperlipidemia, unspecified (principal); I63.9 Cerebral infarction, unspecified
CPT/HCPCS: 36415; 80061; 80076

== ENCOUNTER → 2023-01-17 | Outpatient (CLI) | payer MEDICARE, OTHER, SELFPAY ==
[2023-01-17 12:51] LABS: Absolute Lymphocyte Count 1.77 X10^3/uL (0.83-4.51); Absolute Neutrophil Count 4.4 X10^3/uL (2.0-7.7); Basophil# 0.04 X10^3/uL; Basophil% 0.6 % (0-1); Eosinophil# 0.16 X10^3/uL; Eosinophils% 2.3 % (0-5); Hematocrit 46.9 % (40-54); Hemoglobin 15.2 g/dL (13.0-16.5); Lymphocyte # 1.77 X10^3/ul (0.83-4.51); Lymphocyte % 25.6 % (19-41); Mean Corp Hgb Conc 32.4 g/dL (32-36); Mean Corpuscular Hgb 29.5 pg (27.0-32.0); Mean Corpuscular Volume 90.9 fL (80-94); Mean Platelet Vol. 10.6 fl (6.2-12.0); Monocyte# 0.54 X10^3/uL; Monocyte% 7.8 % (0-10); NRBC Flagged by Analyzer 0 % (0-5); Neutrophil # 4.37 X10^3/uL (2.7-7.7); Neutrophil % 63.3 % (47-70); Platelet Count 201 K/mm3 (150-450); RBC Distribution Width CV 13.1 % (11.6-14.6); RBC Distribution Width SD 42.7 fl (35.1-43.9); Red Blood Count 5.16 M/mm3 (4.6-6.2); White Blood Count 6.9 K/mm3 (4.4-11.0)
[2023-01-17 13:22] LABS: ALB/GLOB Ratio 0.9 RATIO (0.9-2.4); AST(SGOT) 21 U/L (15-37); Alanine Aminotransfer ALT/SGPT 32 U/L (16-61); Albumin, Serum 3.6 g/dL (3.2-5.0); Alkaline Phosphatase 64 U/L (45-117); Anion Gap 6 (5-15); BUN 16 mg/dL (7-18); BUN/Creat Ratio 16.4 RATIO (10-20); Calcium,Total 8.7 mg/dL (8.5-10.1); Chloride 107 mmol/L (98-107); Cholesterol 123 mg/dL (200); Creatinine, Serum 0.97 mg/dL (0.70-1.30); EST Glomerular Filtration Rate 80 mL/min (>60); Est Glom Filt Rate - Afr Amer 97 mL/min (>60); Globulin 3.8 g/dL (2.2-4.2); Glucose 90 mg/dL (74-106); High Density Lipoprotein 51 mg/dL; PSA,Total - Annual Screen 1.43 ng/mL (0.00-4.00); Protein, Total 7.4 g/dL (6.4-8.2); Sodium Level 138 mmol/L (136-145); Triglycerides 129 mg/dL; Uric Acid 5.3 mg/dL (3.5-7.2); Very Low Density Lipoprotein 26 mg/dL (5-40)
== END | disposition home or self-care (01) ==
LOC: MTLAB 09:40
PROVIDERS: PCP Family Medicine; Visit Provider Family Medicine
DX: E78.5 Hyperlipidemia, unspecified (principal); I63.9 Cerebral infarction, unspecified; K21.9 Gastro-esophageal reflux disease without esophagitis; Z12.5 Encounter for screening for malignant neoplasm of prostate
CPT/HCPCS: 36415; 80053; 80061; 84153; 84550; 85025; G0103

== ENCOUNTER → 2023-02-05 | Outpatient (CLI) | payer MEDICARE, OTHER, SELFPAY ==
--- NOTE | 2023-02-05 07:54 | CT_ITS ---
STUDY: LOW DOSE CT LUNG CANCER SCREENING REASON FOR EXAM: Male, 72 years old. Former smoker. The patient smoked 1 pack per day for 50 years. RADIATION DOSAGE (If Supplied By Facility): CTDIvol = ( 4.02 ) mGy, DLP = ( 139.44 ) mGycm TECHNIQUE: No contrast was administered. Low dose technique was utilized (average mAS-38 and kVp 120). 1.25 mm axial source images with a slice interval of 1.25-mm were reconstructed in lung windows. 2.5 mm axial source images with a slice interval of 2.5-mm were reconstructed in lung windows. 5.0 mm axial source images with a slice interval of 5.0-mm were reconstructed in soft tissue windows. COMPARISON: Comparison is made with prior study dated January 23, 2022. NODULES: No suspicious nodules are seen. Emphysema: No significant emphysema is seen. Endobronchial lesion: None Aorta: Atherosclerotic plaque formation. CORONARY ARTERIES: Coronary artery calcification is seen. Heart: Unremarkable. Pulmonary artery: Unremarkable. Mediastinal nodes: Stable small mediastinal lymph nodes. Other chest and abdominal findings: CT/Low Dose CT Lung Screening IMPRESSION: Lung-RADS category 2 - Continue annual screening with LDCT in 12 months. IMPORTANT NOTES FOR USE: ACR Lung-RADS Version 1.1 Assessment Categories Release Date: 2018 Category: Coded 0-4 bases on nodule(s) with highest degree of suspicion. Negative screen is defined as categories 1 and 2; a positive screen is defined as categories 3 and 4. Category 3 and 4A nodules that are unchanged on interval CT should be coded as category 2, and individuals returned to screening in 12 months. Category 4X: Category 3 or 4 nodules with additional imaging findings that increase the suspicion of lung cancer, such as spiculation, GGN that doubles in size in 1 year, enlarged lymph notes, etc. Category Modifiers: S (significant finding unrelated to lung cancer) Electronically Signed: Torrey Garcia MD at 14:52 EDT ,
== END | disposition home or self-care (01) ==
LOC: CT 07:53
PROVIDERS: PCP Family Medicine; Referring Provider Family Medicine; Visit Provider Family Medicine
DX: Z12.2 Encounter for screening for malignant neoplasm of respiratory organs (principal); Z87.891 Personal history of nicotine dependence
CPT/HCPCS: 71271

== ENCOUNTER → 2024-01-15 | Outpatient (CLI) | payer MEDICARE, OTHER, SELFPAY ==
[2024-01-15 15:57] LABS: Absolute Lymphocyte Count 1.85 X10^3/uL (0.83-4.51); Absolute Neutrophil Count 4.8 X10^3/uL (2.0-7.7); Basophil# 0.05 X10^3/uL; Basophil% 0.7 % (0-1); Eosinophil# 0.17 X10^3/uL; Eosinophils% 2.3 % (0-5); Hematocrit 46.5 % (40-54); Lymphocyte # 1.85 X10^3/ul (0.83-4.51); Lymphocyte % 24.6 % (19-41); Mean Corp Hgb Conc 32.3 g/dL (32-36); Mean Corpuscular Hgb 28.5 pg (27.0-32.0); Mean Corpuscular Volume 88.2 fL (80-94); Mean Platelet Vol. 10.4 fl (6.2-12.0); NRBC Flagged by Analyzer 0 % (0-5); Neutrophil # 4.84 X10^3/uL (2.7-7.7); Neutrophil % 64.3 % (47-70); Platelet Count 195 K/mm3 (150-450); RBC Distribution Width CV 12.6 % (11.6-14.6); RBC Distribution Width SD 40.3 fl (35.1-43.9); Red Blood Count 5.27 M/mm3 (4.6-6.2); White Blood Count 7.5 K/mm3 (4.4-11.0)
[2024-01-15 16:16] LABS: AST(SGOT) 22 U/L (15-37); Alanine Aminotransfer ALT/SGPT 32 U/L (16-61); Albumin, Serum 3.7 g/dL (3.2-5.0); Alkaline Phosphatase 59 U/L (45-117); Anion Gap 3 (5-15); BUN 17 mg/dL (7-18); BUN/Creat Ratio 18.1 RATIO (10-20); Chloride 107 mmol/L (98-107); Cholesterol 117 mg/dL (200); Creatinine, Serum 0.94 mg/dL (0.70-1.30); EST Glomerular Filtration Rate 83 mL/min (>60); Est Glom Filt Rate - Afr Amer 101 mL/min (>60); Globulin 3.8 g/dL (2.2-4.2); Glucose 94 mg/dL (74-106); High Density Lipoprotein 46 mg/dL; Potassium 4.2 mmol/L (3.5-5.1); Protein, Total 7.5 g/dL (6.4-8.2); Sodium Level 137 mmol/L (136-145); Triglycerides 131 mg/dL; Very Low Density Lipoprotein 26 mg/dL (5-40)
== END | disposition home or self-care (01) ==
LOC: LABSPEC 15:07 → BFHLAB 15:55
PROVIDERS: PCP Family Medicine; Referring Provider Family Medicine; Visit Provider Family Medicine
DX: E78.5 Hyperlipidemia, unspecified (principal); Z86.73 Personal history of transient ischemic attack (TIA), and cerebral infarction without residual deficits; K21.9 Gastro-esophageal reflux disease without esophagitis; Z80.42 Family history of malignant neoplasm of prostate
CPT/HCPCS: 36415; 80053; 80061; 85025

== ENCOUNTER → 2024-01-21 | Outpatient (CLI) | payer MEDICARE, OTHER, SELFPAY ==
[2024-01-21 15:31] LABS: Erythrocyte Sedimentation Rate 6 mm/hr (0-20)
[2024-01-21 16:06] LABS: CRP < 2.90 mg/L (0.0-3.0)
== END | disposition home or self-care (01) ==
LOC: MTLAB 12:43
PROVIDERS: PCP Family Medicine; Referring Provider Family Medicine; Visit Provider Family Medicine
DX: M35.3 Polymyalgia rheumatica (principal)
CPT/HCPCS: 36415; 85652; 86140

== ENCOUNTER → 2024-02-24 | Outpatient (CLI) | payer MEDICARE, OTHER, SELFPAY ==
--- NOTE | 2024-02-24 07:55 | CT_ITS ---
STUDY: LOW DOSE CT LUNG CANCER SCREENING REASON FOR EXAM: Male, 74 years old. Personal history of nicotine dependence RADIATION DOSAGE (If Supplied By Facility): CTDIvol = ( 4.02 ) mGy, DLP = ( 148.98 ) mGycm TECHNIQUE: No contrast was administered. Low dose technique was utilized (average mAS-38 and kVp 120). 1.25 mm axial source images with a slice interval of 1.25-mm were reconstructed in lung windows. 2.5 mm axial source images with a slice interval of 2.5-mm were reconstructed in lung windows. 5.0 mm axial source images with a slice interval of 5.0-mm were reconstructed in soft tissue windows. COMPARISON: Comparison is made with prior study February 05, 2023. NODULES: No suspicious nodules are seen. Emphysema: No significant emphysematous changes. Endobronchial lesion: None Aorta: Atherosclerotic plaque formation of the aortic arch and descending thoracic aorta. CORONARY ARTERIES: Coronary artery calcification is seen. Heart: Mild thickening of the right side of the pericardium suggestive of a small pericardial effusion. Pulmonary artery: Unremarkable Mediastinal nodes: Small mediastinal lymph nodes. Other chest and abdominal findings: CT/Low Dose CT Lung Screening IMPRESSION: Lung-RADS category 2 - Continue annual screening with LDCT in 12 months. IMPORTANT NOTES FOR USE: ACR Lung-RADS Version 1.1 Assessment Categories Release Date: 2018 Category: Coded 0-4 bases on nodule(s) with highest degree of suspicion. Negative screen is defined as categories 1 and 2; a positive screen is defined as categories 3 and 4. Category 3 and 4A nodules that are unchanged on interval CT should be coded as category 2, and individuals returned to screening in 12 months. Category 4X: Category 3 or 4 nodules with additional imaging findings that increase the suspicion of lung cancer, such as spiculation, GGN that doubles in size in 1 year, enlarged lymph notes, etc. Category Modifiers: S (significant finding unrelated to lung cancer) Electronically Signed: Torrey Garcia MD at 14:16 EDT ,
== END | disposition home or self-care (01) ==
LOC: CT 07:55
PROVIDERS: PCP Family Medicine; Referring Provider Family Medicine; Visit Provider Family Medicine
DX: Z12.2 Encounter for screening for malignant neoplasm of respiratory organs (principal); Z87.891 Personal history of nicotine dependence
CPT/HCPCS: 71271

== ENCOUNTER → 2024-06-18 | Outpatient (CLI) | payer MEDICARE, OTHER, SELFPAY ==
[2024-06-18 12:51] LABS: Cholesterol 122 mg/dL (200); High Density Lipoprotein 49 mg/dL; Triglycerides 128 mg/dL; Very Low Density Lipoprotein 26 mg/dL (5-40)
== END | disposition home or self-care (01) ==
LOC: BFHLAB 10:08
PROVIDERS: PCP Family Medicine; Visit Provider Family Medicine
DX: E78.5 Hyperlipidemia, unspecified (principal)
CPT/HCPCS: 36415; 80061

== ENCOUNTER → 2024-08-25 | Outpatient (CLI) | payer MEDICARE, OTHER, SELFPAY ==
[2024-08-25 17:50] LABS: Absolute Lymphocyte Count 1.66 X10^3/uL (0.83-4.51); Absolute Neutrophil Count 4.2 X10^3/uL (2.0-7.7); Basophil# 0.05 X10^3/uL; Basophil% 0.7 % (0-1); Eosinophil# 0.09 X10^3/uL; Eosinophils% 1.3 % (0-5); Hematocrit 46.3 % (40-54); Hemoglobin 14.9 g/dL (13.0-16.5); Lymphocyte # 1.66 X10^3/ul (0.83-4.51); Lymphocyte % 24.8 % (19-41); Mean Corp Hgb Conc 32.2 g/dL (32-36); Mean Corpuscular Hgb 28.7 pg (27.0-32.0); Mean Corpuscular Volume 89.2 fL (80-94); Mean Platelet Vol. 10.3 fl (6.2-12.0); Monocyte# 0.67 X10^3/uL; NRBC Flagged by Analyzer 0 % (0-5); Neutrophil % 62.9 % (47-70); Platelet Count 229 K/mm3 (150-450); RBC Distribution Width CV 12.8 % (11.6-14.6); RBC Distribution Width SD 41.5 fl (35.1-43.9); Red Blood Count 5.19 M/mm3 (4.6-6.2); White Blood Count 6.7 K/mm3 (4.4-11.0)
[2024-08-25 18:13] LABS: Erythrocyte Sedimentation Rate 16 mm/hr (0-20)
[2024-08-25 21:15] LABS: CRP < 3.00 mg/L (0.0-3.0); Rheumatoid Factor < 10.0 IU/mL (<15)
[2024-08-27 13:08] LABS: CCP IgG Antibodies 15 units (0-19)
[2024-08-27 14:08] LABS: ANTINUCLEAR ANTIBODIES DIRECT Negative (Negative)
== END | disposition home or self-care (01) ==
LOC: BFHLAB 14:19
PROVIDERS: PCP Family Medicine; Visit Provider Family Medicine
DX: E78.5 Hyperlipidemia, unspecified (principal); M25.541 Pain in joints of right hand; M25.542 Pain in joints of left hand
CPT/HCPCS: 36415; 85025; 85652; 86038; 86140; 86200; 86431

== ENCOUNTER → 2024-09-10 | Outpatient (CLI) | payer MEDICARE, OTHER, SELFPAY ==
[2024-09-10 13:02] LABS: Cholesterol 171 mg/dL (<=200); High Density Lipoprotein 44 mg/dL; Low Density Lipoprotein Calc. 100 mg/dL; Triglycerides 131 mg/dL; Very Low Density Lipoprotein 26 mg/dL (5-40); cholesterol:hdl ratio screen 3.85
== END | disposition home or self-care (01) ==
LOC: BFHLAB 10:19
PROVIDERS: PCP Family Medicine; Visit Provider Family Medicine
DX: E78.5 Hyperlipidemia, unspecified (principal)
CPT/HCPCS: 36415; 80061

== ENCOUNTER → 2024-11-19 | Outpatient (CLI) | payer MEDICARE, OTHER, SELFPAY ==
--- NOTE | 2024-11-19 14:46 | ECHOD_ITS ---
Reason For Study Reason For Study: CAD/ASHD Procedure This was a 2D Doppler, Color Flow transthoracic echocardiogram. Exam performed in department. Left Ventricle Normal LV size. Left ventricular systolic function is normal. The left ventricular ejection fraction is 65 %. No regional wall motion abnormalities noted. Right Ventricle Normal RV size. Normal systolic function. Atria Normal left atrium. Mitral Valve There is mild to moderate mitral annular calcification. Mild (1+) mitral valve insufficiency. Tricuspid Valve Normal tricuspid valve. Aortic Valve Normal aortic valve. Pulmonic Valve Normal pulmonic valve. Great Vessels Normal aortic root. The pulmonary artery is normal size. Inferior vena cava collapse with respiration. Pericardium/Pleural No pericardial effusion. MMode/2D Measurements & Calculations LVIDd: 4.8 cm IVSd: 1.1 cm Ao root diam: 3.1 cm LVIDs: 3.4 cm LVPWd: 1.2 cm RVDd: 3.3 cm FS: 30.2 % LAV(MOD-bp): 62.3 ml LVAd ap4: 24.6 cm2 SV(MOD-sp4): 43.7 ml LAV(MOD-bp) Indexed: 28.0 ml/m2 LVLd ap4: 7.3 cm SI(MOD-sp4): 19.7 ml/m2 LAV(MOD-sp2): 61.4 ml EDV(MOD-sp4): 68.2 ml LAV(MOD-sp4): 61.3 ml EDV(sp4-el): 70.0 ml LVAs ap4: 12.4 cm2 LVLs ap4: 5.7 cm ESV(MOD-sp4): 24.4 ml ESV(sp4-el): 23.0 ml EF(MOD-sp4): 64.1 % EF(sp4-el): 67.1 % SV(sp4-el): 46.9 ml LA A4 area: 20.1 cm2 LA dimension(2D): 4.7 cm RA A4 area: 11.5 cm2 TAPSE: 2.4 cm Time Measurements MV dec time: 0.34 sec Doppler Measurements & Calculations MV E max ho: 84.6 cm/sec Lat Peak E' Ho: 6.7 cm/sec Med Peak E' Ho: 5.5 cm/sec MV A max ho: 128.4 cm/sec E/E' lat: 12.7 E/E' med: 15.4 MV E/A: 0.66 MV V2 max: 135.5 cm/sec MV P1/2t max ho: 80.2 cm/sec Ao V2 max: 159.0 cm/sec MV max P.3 mmHg MV P1/2t: 91.9 msec Ao max P.1 mmHg MV V2 mean: 65.7 cm/sec Ao V2 mean: 102.5 cm/sec MV mean P.0 mmHg MV dec slope: 255.7 cm/sec2 Ao mean P.9 mmHg MV V2 VTI: 32.2 cm MVA(P1/2t): 2.4 cm2 Ao V2 VTI: 31.6 cm AV (velocity ratio): 0.67 LV V1 max: 104.0 cm/sec PA V2 max: 101.1 cm/sec TR max ho: 232.8 cm/sec LV V1 max P.3 mmHg PA V2 mean: 67.8 cm/sec TR max P.7 mmHg LV V1 mean P.5 mmHg LV V1 mean: 75.4 cm/sec LV V1 VTI: 21.1 cm ECHO/Echo Complete Interpretation Summary Normal LV size. Left ventricular systolic function is normal. The left ventricular ejection fraction is 65 %. There is mild to moderate mitral annular calcification. Mild (1+) mitral valve insufficiency. Ordering Physician: Biju Black Referring Physician: Sera Caro Performed By: Radha Hunt, RDCS, RVT
== END | disposition home or self-care (01) ==
LOC: CVS 14:42
PROVIDERS: PCP Family Medicine; Referring Provider Internal Medicine Cardiovascular Disease; Visit Provider Internal Medicine Cardiovascular Disease
DX: I63.9 Cerebral infarction, unspecified (principal); I25.10 Atherosclerotic heart disease of native coronary artery without angina pectoris
CPT/HCPCS: 93306

== ENCOUNTER 2025-01-11 08:28 | Day surgery (SDC) | payer MEDICARE, OTHER, SELFPAY ==
--- NOTE | 2024-12-22 10:21 | RAD_ITS ---
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 RAD/Chest PA and Lateral IMPRESSION: Lungs appear clear of acute disease. No evidence of pulmonary edema. No pleural effusion or pneumothorax is noted. The cardiomediastinal silhouette is unchanged, with a partially calcified aorta noted. No evidence of cardiomegaly. Mild thoracic spine degenerative changes are noted Reading Location: [place] [address]
[2024-12-22 12:01] LABS: Hematocrit 47.8 % (40-54); Hemoglobin 15.8 g/dL (13.0-16.5); Immature Granulocytes Count 0.020 X10^3/uL (0.0-0.0); Mean Corp Hgb Conc 33.1 g/dL (32-36); Mean Corpuscular Volume 88.4 fL (80-94); Mean Platelet Vol. 10.2 fl (6.2-12.0); NRBC Flagged by Analyzer 0 % (0-5); Platelet Count 192 K/mm3 (150-450); RBC Distribution Width CV 13.3 % (11.6-14.6); RBC Distribution Width SD 42.8 fl (35.1-43.9); Red Blood Count 5.41 M/mm3 (4.6-6.2); White Blood Count 6.2 K/mm3 (4.4-11.0)
[2024-12-22 13:26] LABS: Anion Gap 11 (5-15); BUN 17 mg/dL (4-19); BUN/Creat Ratio 16.1 RATIO (10-20); Calcium,Total 9.3 mg/dL (7.6-11.0); Carbon Dioxide 25.1 mmol/L (21.0-32.0); Chloride 105 mmol/L (98-108); Glucose 84 mg/dL (70-99); Potassium 4.3 mmol/L (3.3-5.1)
[2025-01-08 09:51] VITALS: BMI 33.1
--- NOTE | 2025-02-08 09:46 | CL.D_ITS ---
Patient Name: WESTON MCKINLEY Study Date: 01/11/2025 Performing: Biju Black MD Ht: 70 inches 177.8 cm : 1950 Wt: 231 lbs 104.78 kg Age: 74 Gender: male BSA: 2.22 PROCEDURE(S) PERFORMED DC01-(38637)LHC/COR/LV CLINICAL PROFILE AND INDICATIONS Indications: Suspected CAD Heart Failure: None Stress/Imaging Date: 12/03/24Calcium Score: 3000 CAD Presentations: No Sxs, no angina. CONCLUSIONS Calcified high-grade mid left anterior descending artery lesion RECOMMENDATIONS Recommend high risk PCI versus single-vessel coronary bypass surgery. DESCRIPTION OF PROCEDURE The patient arrived to the procedure lab. The risks and benefits of the procedure as well as a full description of our services here and current unavailability of surgical backup were fully explained to the patient and/or their significant other prior to the catheterization. The Timeout was completed, verifying the correct patient and procedure. The patient's procedural site was prepped and draped in the usual fashion. Local anesthetic was given subcutaneously to right radial region with Lidocaine 2%. Using a modified Seldinger technique, arterial access was obtained via the right radial artery, a 6Fr sheath was inserted. Right Coronary Artery selective angiography was then performed in multiple views using a 5 Fr. JR 5 catheter. Left Coronary Artery selective angiography was performed in multiple views using a 5 Fr. JL3.5 catheter. Left Ventriculography was performed in KNAPP projection using a 5 Fr. Pigtail catheter. LV to AO pullback pressures were then recorded. Left Coronary Artery selective angiography was performed in multiple views using a 5 Fr. JL3.5 catheter. CORONARY ANGIOGRAPHY DOMINANCE: Right Dominant LEFT HEART ASSESSMENT Left Ventricular Ejection Fraction: by LV Gram 60 % Normal LV wall motion Normal Left Ventricular systolic function LEFT MAIN: Angiographically normal LEFT ANTERIOR DESCENDING ARTERY: Moderate calcification MID LAD: 99 % Stenosis DIAGONAL 1: Proximal - Mild luminal irregularities CIRCUMFLEX ARTERY: Mild luminal irregularities RIGHT CORONARY ARTERY: Mild luminal irregularities less than 30% COMPLICATIONS PROCEDURE MEDICATIONS Fentanyl 50 mcg IV Versed 1 mg IV Versed 1 mg IV Fentanyl 50 mcg IV Oxygen: 2 L/min via nasal cannula Heparin given IA 01/11/2025 09:21:57 Verapamil 2.5mg, Ntg 100mcgs, 3000 units of Heparin given IA 01/11/2025 09:21:57 SUMMARY OF HEMODYNAMIC DATA Time AIR REST ECG 08:51:36 AO 142/77 (103) SA 09:47:18 LV 127/14, 21 10:07:38 LV 124/14, 27 10:07:44 LV 127/18, 21 10:08:32 LVp 125/15, 23 10:08:35 AOp 116/64 (87) 10:08:40 Signed By Biju Black MD On 01/11/2025 10:27:00 Biju Black MD
== END 2025-01-11 14:00 | disposition home or self-care (01) ==
PROVIDERS: Nurse Practitioner Gerontology; PCP Family Medicine; Referring Provider Internal Medicine Cardiovascular Disease; Visit Provider Internal Medicine Cardiovascular Disease
DX: R93.1 Abnormal findings on diagnostic imaging of heart and coronary circulation (principal); I10 Essential (primary) hypertension; Z79.82 Long term (current) use of aspirin; Z86.73 Personal history of transient ischemic attack (TIA), and cerebral infarction without residual deficits; R06.02 Shortness of breath; R53.83 Other fatigue; Z87.891 Personal history of nicotine dependence; E78.2 Mixed hyperlipidemia; I25.84 Coronary atherosclerosis due to calcified coronary lesion
CPT/HCPCS: 36415; 71046; 80048; 85025; 93458; 99152; 99153; C1769; Q9967; C1894

== ENCOUNTER → 2025-03-19 | Outpatient (CLI) | payer MEDICARE, OTHER, SELFPAY ==
--- NOTE | 2025-03-19 14:16 | CR.HP_ITS ---
CR - History & Physical General Arrival date:: 03/19/25 Arrival time:: 14:05 Date of Referral:: 02/22/25 Date of CR Evaluation:: 03/19/25 Referring Physician: Josiane Primary Diagnosis: CABG History of Present Cardiac Event Onset Date Coronary Artery Bypass Graft:: Yes Vessel: CABGx1 PAULINO-LAD Medications Ambulatory Orders ?Medication ?Instructions ?Recorded aspirin 81 mg chewable tablet 81 mg PO BREAKFAST Heart Health 06/20/21 meloxicam 15 mg tablet 15 mg PO QDAY PRN sleep 10/01 atorvastatin 40 mg tablet (Lipitor) 40 mg PO QDAY #60 tabs 01/11/25 metoprolol succinate 25 mg 25 mg PO QDAY #60 tabs 12/29 10/23 tablet,extended release 24 hr (Toprol XL) Allergies Allergies No Known Allergies Allergy (Verified 03/19/25 14:30) Sleep Disorder Evaluation Hx of Sleep Apnea: No Do you snore loudly (louder than talking or can be heard through closed doors)?: Yes Do you often feel tired/ fatigued/ sleepy during daytime?: No Has anyone observed you stop breathing during sleep?: No History of Hypertension (for STOP score): No STOP Results: Negative Advance Directives Advanced Directives Advance Directives: Yes Living Will Living Will: Yes Power of Laboratory Asst, Durable Power of Laboratory Asst for Healthcare: Yes Able to identify name of POA?: Yes Name of Medical Power of Laboratory Asst: (Marly) Information Education/Medical Records Advanced Care Planning Booklet Provided: Patient Declined Advance Directives on File: Yes Advanced Directives Advanced Directives Do you have a Healthcare Power of Laboratory Asst?: Yes Living Will: Yes Advance Directives on File: Yes Past Medical History Past Medical Illness Medical History (Reviewed 12/22/24 @ 09:40 by Haylie Galarza CHIEF CREATIVE OFFICER, CHIEF CREATIVE OFFICER-C) CVA (cerebral vascular accident) GERD (gastroesophageal reflux disease) Obesity History of tobacco use Encounter for screening for malignant neoplasm of lung in current smoker with 30 pack year history or greater Alcohol abuse Dysarthria Hyperlipidemia Hypertension Past Surgical History Surgical History S/P correction of deviated nasal septum Family History Summary Family History Father Cancer Mother Dementia Review of Systems Review of Systems Hints Review of Present Symptoms: Reports Fatigue Pain Is Patient Pain Free?: Yes Pain Location: none Risk Factor Assessment Obesity Height: 5 ft 10 in For Smoking Smoking Risk Guidelines For Dyslipidemia Dyslipidemia Risk Guidelines For Diabetes Mellitus Diabetes Risk Guidelines For Obesity/Overweight Obesity/Overweight Risk Guidelines For Hypertension Hypertension Risk Guidelines For Sedentary Lifestyle Sedentary Lifestyle Risk Guidelines For Depression Depression Risk Guidelines Family History Family History Father Cancer Mother Dementia
--- NOTE | 2025-03-19 14:16 | PCM.CR.HP ---
CR - History & Physical General Arrival date:: 03/19/25 Arrival time:: 14:05 Date of Referral:: 02/22/25 Date of CR Evaluation:: 03/19/25 Referring Physician: Josiane Primary Diagnosis: CABG History of Present Cardiac Event Onset Date Coronary Artery Bypass Graft:: Yes Vessel: CABGx1 PAULINO-LAD Medications Ambulatory Orders ?Medication ?Instructions ?Recorded aspirin 81 mg chewable tablet 81 mg PO BREAKFAST Heart Health 06/20/21 meloxicam 15 mg tablet 15 mg PO QDAY PRN sleep 10/28/24 atorvastatin 40 mg tablet (Lipitor) 40 mg PO QDAY #60 tabs 01/11/25 metoprolol succinate 25 mg 25 mg PO QDAY #60 tabs 01/11/25 tablet,extended release 24 hr (Toprol XL) ezetimibe 10 mg tablet 10 mg PO DAILY 03/19/25 metoprolol tartrate 75 mg tablet 75 mg PO BID 03/19/25 Allergies Allergies No Known Allergies Allergy (Verified 03/19/25 14:30) Sleep Disorder Evaluation Hx of Sleep Apnea: No Do you snore loudly (louder than talking or can be heard through closed doors)?: Yes Do you often feel tired/ fatigued/ sleepy during daytime?: No Has anyone observed you stop breathing during sleep?: No History of Hypertension (for STOP score): No STOP Results: Negative Advance Directives Advanced Directives Advance Directives: Yes Living Will Living Will: Yes Power of Residential Nurse, Durable Power of Residential Nurse for Healthcare: Yes Able to identify name of POA?: Yes Name of Medical Power of Residential Nurse: (Marly) Information Education/Medical Records Advanced Care Planning Booklet Provided: Patient Declined Advance Directives on File: Yes Advanced Directives Advanced Directives Do you have a Healthcare Power of Residential Nurse?: Yes Living Will: Yes Advance Directives on File: Yes Past Medical History Covid-19 Screening Physicial Symptoms Fever: No Unexplained muscle aches: No Current respiratory symptoms: No Upper respiratory infections symptoms: No Gastro-intestinal symptoms: No Ryd-[id number] symptoms: No Other Clinical Concerns Has tested positive for COVID-19 in last 30 days: No Exposure Risk Had contact w/person w/symptoms or Covid-19 (+) last 14 days: No Has High Risk Exposures ID'd by Health dept/Inf Control team: No Pertinent Comorbidities 65 years or older:: Yes Lives in Assisted Living facility:: No Has a chronic lung disease or moderate to severe asthma:: No Has a serious heart condition:: No Immunocompromised:: No Severely obese (Body Mass Index of 40 or higher):: No Diabetic:: No Has chronic kidney disease undergoing dialysis:: No Has liver disease:: No Past Medical Illness Medical History (Reviewed 12/22/24 @ 09:40 by Haylie Galarza CREDIT COLLECTIONS REP, CREDIT COLLECTIONS REP-C) CVA (cerebral vascular accident) GERD (gastroesophageal reflux disease) Obesity History of tobacco use Encounter for screening for malignant neoplasm of lung in current smoker with 30 pack year history or greater Alcohol abuse Dysarthria Hyperlipidemia Hypertension Past Surgical History Surgical History S/P correction of deviated nasal septum Family History Summary Family History Father Cancer Mother Dementia Review of Systems Review of Systems Hints Review of Present Symptoms: Reports Fatigue Pain Is Patient Pain Free?: Yes Pain Location: none Risk Factor Assessment Chief Complaint Chief Complaint: Fatigue Vital Signs Respiratory Rate: 18 Pulse Ox: 93 Blood Pressure: 126/58 Nailbeds:: WNL Pulse Pulse Rate: 71 Pulse Rhythm: Regular Hypertension Blood Pressure Sitting - Left Arm: 126/58 Blood Cholesterol/Lipids Total Cholesterol (mg/dL) Goal = less than 200 mg/dL: 171 HDL Cholesterol (mg/dL) Goal = less than 40 mg/dL: 44 LDL Cholesterol (mg/dL) Goal = less than 70 mg/dL: 47 Triglycerides (mg/dL) Goal = less than 150 mg/dL: 131 Obesity Height: 5 ft 10 in Weight:: 222 lb Weight in Pounds: 222.0 lbs Weight Source: Stated by Patient Body Mass Index (BMI): 31.8 Physical Inactivity Physical Inactivity: Reg Exercise 30 min/day Risk Stratification Risk Guidelines: Lowest Risk: Risk Factor for Smoking, Risk Factor for Obesity and Risk Factor for Depression and Moderate Risk: Risk Factor for Dyslipidemia, Risk Factor for Hypertension and Risk Factor for Sedentary Lifestyle For Smoking Smoking Risk Guidelines For Dyslipidemia Dyslipidemia Risk Guidelines For Diabetes Mellitus Diabetes Risk Guidelines For Obesity/Overweight Obesity/Overweight Risk Guidelines For Hypertension Hypertension Risk Guidelines For Sedentary Lifestyle Sedentary Lifestyle Risk Guidelines For Depression Depression Risk Guidelines Family History Family History Father Cancer Mother Dementia Social History Smoking History Smoking Status: Former smoker (quit 06/18/2021 after CVA) Hx Tobacco Use: No Alcohol Use Alcohol Usage: Yes (2-3 liquor/beer a day) Substance Abuse Hx Substance Use: No Occupation Occupation (List type of work in comments):: Employed Social Environment Status Marital Status: Current Living Arrangements Living Environment:: Spouse Children How many children do you have?: 2 Do any of your children live nearby?: Yes Safety Do you feel safe in your surroundings?: Yes Assistance Do you need any assistance at home?: None Nutrition Survey Nutrition Survey Initial: Have you lost >10 lbs over the past 2 months without trying?: No Are you following a special diet at home for diabetes, low fat, or low salt?: No Are you interested in meeting with a dietitian for help understanding your diet?: No Do you eat less than 3 meals a day?: Yes Do you eat fatty meats (machado, sausage, ribs, etc), fried foods, desserts, large amounts of salad dressings, margarine, butter, or cheese most days?: Yes Do you have food allergies? [Enter types in comment field]: No Do you eat in restaurants more than 3 times a week?: Yes Do you season food with salt, seasoning salt, or garlic salt?: Yes Do you used canned, boxed, frozen meals, or soups, seasoning packets?: No Total Score:: 4 Self-Efficacy 6-Item Scale Initial Assessment: We would like to know how confident you are in doing certain activities. Please select your confidence level for: Fatigue Select Number: 8 Physical Discomfort or Pain Select Number: 8 Emotional Distress Select Number: 10 Other Symptoms or Health Problems Select Number: 9 Different Tasks and Activities Select Number: 10 Medication Select Number: 9 Total Score:: 9
[2025-03-19 14:41] VITALS: BMI 31.8
[2025-03-19 15:05] VITALS: BP 126/58; PULSE 71; RESP 18; O2SAT 93
--- NOTE | 2025-03-19 15:05 | CR.ITP_ITS ---
Diagnosis General Information Admitting Diagnosis: CABG Stage of change r/t lifestyle modifications:: Action Education/Goals Individual Counseling: Initial Assessment: Nicotine/Smoking, Abnormal Cholesterol Levels, High Blood Pressure, Overweight/Obesity, Metabolic Syndrome (as evidenced by 3 of 5 A-E below), Hypertension, Sedentary Lifestyle and Stress Cardiac Rehabilitation Goals Personal Goals: Initial Assessment: Improve energy level, Get back to work, or to resume activities faster, Improve muscle strength and endurance and Control risk factors (learn risk factor modification) Scale for measuring improvement of personal goals Diagnosis & Disease Process Outcomes/Goals: Pt IDs own risk factors & lifestyle modifications by Session 10, Verbalizes symptoms of angina & response by session 3. and Pt independently manages Plan/Interventions: Assist Pt to ID & engage in lifestyle modification to reduce CVD risk, Instruct on individual risk factors, Review symptoms of angina & emergency actions and Review secondary diagnosis & identify educational needs. 30 day Reassessments:: Not Met Safety Referral to Physical Therapy: No Referral to [facility] Case Management: No Fall Risk Assessed:: Yes Assistive Devices:: None Exercise - Initial Assessment Visit Date of Eval: 03/19/25 (initial evaluation) Physician Prescribed Exercise Modalities: Treadmill, Rower, Schwinn Airdyne AD-7, SciFit Stepper, SciFit Pro- II Ergometer and SciFit Lateral Product Developer Frequency: 3x/week for 12 weeks [36 sessions] Intensity: 60-80% of age predicted maximum heart rate reserve Duration: 30 - 45 minutes METs - Progression 0.5-1.0 weekly:: 0.5-1.0 Target Heart Rate:: 93-107 Target RPE 12-16:: 12-16 EKG Type: NSR Outcomes & Goals Goals:: Verbalizes understanding of THR, RPE & goal METS by session 6, Documents in home exercise log/reports 30 min aerobic 5 day/wk by DC and Demonstrates accurate pulse taking by DC Intervention & Plan Exercise Program Goals: Instruct on personal THR & RPE, Instruct on MET level & personal MET goal, Show patient to take own pulse /validate performance until accurate and Instruct on home exercise Physical Activity Home Exercise Physical Activity - Home Exercise: Safe Exercise, Warm-up, Self-monitoring, Cool-Down, Home Exercise > 30 min Daily and Sitting Time <3 hours/daily Outcomes & Goals Outcomes/Goals: Demonstrates correct Warm-up/exercise Cool-Down (S3) if = 2.5 METs, Verbalizes symptoms of exercise intolerance by Session 3 (S3) and Demonstrate safe equipment use (S3) & follows exercise prescrition (6) Intervention & Plan Plan/Intervention: Instruct warm-up & cool-down if exercising at > 2 METs, Instruct on symptoms of exercise intolerance & actions to take, Instruct & monitor on saf and Assess intial functional capacity & safety risk Nutrition - Initial Assessment Program Goals Nutrition Program Goals Patient has diagnosis of Hyperlipidemia (ICD E78)?: Yes Visit Date of Eval: 03/19/25 (initial evaluation) Cholesterol/Lipids (Other Core Measures) Triglycerides (mg/dL): 131 Total Cholesterol (mg/dL): 171 LDL Cholesterol (mg/dL): 47 HDL Cholesterol (mg/dL): 44 Lipid Medication: ezetimibe 10mg QD Determine presence & major risk factors that modify LDL goal: Cigarette smoking, Hypertension or hypertensive medication, Low HDL cholesterol <40 mg/dL*, Family history of premature CHD in Male < 55 years: female <65 yearsFa and Age men > 45 years; women >/= 55 years Outcomes/Goals: Pt IDs own risk factors & lifestyle modifications by Session 10, Verbalizes symptoms of angina & response by session 3. and Pt independently manages Intervention/Plan: Advocate for lipid panel cholesterol medication if applicable, Instruct on personal lipid levels & lipid goals/NCEP guidelines and Instruct on cholesterol Referral to dietitian:: No (pt does not wish to meet with station tender for 1 on 1 counseling at this time) Diabetes (Other Core Measures) Diabetes Type: Not Applicable Weight Mgt (Other Care) Height: 5 ft 10 in Weight:: 222 lb BMI: 31.8 Diagnosis Overweight/Obesity BMI> 30% ICD-10 E66: Yes Diagnosis High BMI/Morbid Obesity BMI> 35% ICD-10 Z68: No Outcomes/Goals: Pt sets, maintains & shows weight loss goal & trend during rehab Intervention/Plan: Instruct on ideal BMI & set weight loss goal w/patient, Assist pt to ID & incorporate diet changes for weight loss by S9, Refer to Structured Weight Loss program as appropriate and Encourage goal of using 250- 300dcal per session for weight loss Healthy Eating Habits Will attend diet classes:: Yes Outcomes/Goals:: Consume diet rich in vegs,fruits,whole grain/high fiber,fish,lean meat and Limit sat/trans fats,cholesterol & added salts & sugars Intervention/Plan:: Assess current eating habits Education Gave educational materials for:: Signs & symptoms of hypoglycemia, Signs & symptoms of hyperglycemia, Relate diabetes to coronary artery disease and H ealthy eating Core - Initial Assessment Visit Date of Eval: 03/19/25 (initial evaluation) Medication Compliance Preventative Medication(s):: Aspirin, Clopidogrel/P2Y12 inhibit and Statin/lipid H/O mental health issues: depression, anxiety, or addiction?: No Doesn?t believe in the benefits of treatment?: No Believes medications are unnecessary or harmful?: No Has a concern about medication side effects?: No Expresses concern over the cost of medications?: No Outcomes/Goals: Verbalizes medications,desired effect & common side effects @ DC, Pt self-reports following medication regimen and Keeps card in wallet w/medications listed by DC Interventions/plans: Instruct on medication effects & side effects, Review medication list w/patient every two weeks and Instruct importance of taking meds as ordered & assist problem solving Tobacco Use Tobacco Use: Non-smoker (quit 06/18/2021) Outcomes/Goals: Smoking cessation achieved or maintained by discharge and Identify aids/strategies for achieving smoking cessation by session 6 Interventions/plan: Instruct on effects of smoking & provide smoking cessation resource, Assist pt to set quit date & provide encouragement, Assist pt to develop strategies to achieve/maintain quit date and Assist pt w/nicotine replacement & medication for cessation success Hypertension Hypertension Diagnosis:: Hypertension ICD-10 I10 Resting Blood Pressure:: 126/58 [place] [employer] Hypertension Guidelines Outcomes/Goals: Able to verbalize/achieve optimal blood pressure <130/80 and Incorporates diet changes & exercise for blood pressure control by DC Interventions/plan: Instruct on optimal blood pressure, hypertension & medications and Instruct on effects of sodium, alcohol, stress, exercise &hypertension Tobacco Cessation Referral Smoking Cessation Referral:: No Individual Education/Counseling:: Yes Education Schedule Given:: Yes Psychosocial - Initial Assess VIsit Date of Eval: 03/19/25 (initial evaluation) History of previous Mental disease:: No History of Emotional Disorders: None Psychosocial Test Tool Used:: PHQ-9 Questionnaire phq-9 Severity See PHQ-9 Score: 3 Referral to Behavioral Health PS - Interventions: Yes: Attend Stress Management Classes Outcomes/Goals: See list Psychosocial Outcomes/Goals:: ID's personal stressors & 2 strategies to manage stress by discharge Intervention/Plan: See List Interventions/Plan:: Assess stressors,coping strategies & signs of derpression on admission, Instruct/assist pt to develop coping & personal stress Mgt strategies, Refer to Behavioral Health if appropriate, Refer to Physician if appropriate and Instruct patient to recognize signs & symptoms of depression Patient Health Questionnaire PHQ-9 Screening Initial Assessment: 1. Little interest or pleasure in doing things: Not at all 2. Feeling down, depressed, or hopeless: Not at all 3. Trouble falling or staying asleep, or sleeping too much: More than half the days 4. Feeling tired or having little energy: Several days 5. Poor appetite or overeating: Not at all 6. Feeling bad about yourself -- or that you are a failure or have let yourself or your family down: Not at all 7. Trouble concentrating on things, such as reading the newspaper or watching television: Not at all 8. Moving or speaking so slowly that other people could have noticed. Or the opposite - being so fidgety or restless that you have been moving around a lot more than usual: Not at all 9. Thoughts that you would be better off , or of hurting yourself in some way: Not at all Total Score: 3 SANDRA-Q SV Test Statements CAD is a disease of the arteries in the heart: False Examples of risk factors for heart disease: True Angina is chest pain or discomfort: True The benefits of resistance training include: True Eating more meat and dairy products: False Anti-platelet medications such as aspirin are important: True The only effective way to manage stress: False An exercise warm-up slowly increases heart rate: True Prepared, processed foods usually have high sodium: True Depression is common after a heart attack: I Don't Know The statin medications lower cholesterol: True To control blood pressure, lower the amount of sodium: True If someone gets chest discomfort during walking: False Transfats are partially hydrogenated vegetable oils: I Don't Know Sleep apnea that is not treated increases the risk: False To control cholesterol, one should become a vegetarian: False Someone knows if he/she is exercising at the right level: True Diabetes cannot be prevented with exercise & health eating: True Stress is a large risk for heart attack: True A diet that can help lower blood pressure is rich in: True Total Score Total Correct Responses: 17 Self-Efficacy 6-Item Scale Initial Assessment: We would like to know how confident you are in doing certain activities. Please select your confidence level for: Fatigue Select Number: 8 Physical Discomfort or Pain Select Number: 8 Emotional Distress Select Number: 10 Other Symptoms or Health Problems Select Number: 9 Different Tasks and Activities Select Number: 10 Medication Select Number: 9 Total Score:: 9 Nutrition Survey Nutrition Survey Initial: Have you lost >10 lbs over the past 2 months without trying?: No Are you following a special diet at home for diabetes, low fat, or low salt?: No Are you interested in meeting with a dietitian for help understanding your diet?: No Do you eat less than 3 meals a day?: Yes Do you eat fatty meats (machado, sausage, ribs, etc), fried foods, desserts, large amounts of salad dressings, margarine, butter, or cheese most days?: Yes Do you have food allergies? [Enter types in comment field]: No Do you eat in restaurants more than 3 times a week?: Yes Do you season food with salt, seasoning salt, or garlic salt?: Yes Do you used canned, boxed, frozen meals, or soups, seasoning packets?: No Total Score:: 4 Exercise - 30-day Assessment Physician Prescribed Exercise Modalities: Treadmill, Rower, Schwinn Airdyne AD-7, SciFit Stepper, SciFit Pro- II Ergometer and SciFit Lateral [place] Exercise - 60-day Assessment Physician Prescribed Exercise Modalities: Treadmill, Rower, Schwinn Airdyne AD-7, SciFit Stepper, SciFit Pro- II Ergometer and SciFit Lateral Product Developer Exercise - 90-day Assessment Physician Prescribed Exercise Modalities: Treadmill, Rower, Schwinn Airdyne AD-7, SciFit Stepper, SciFit Pro- II Ergometer and SciFit Lateral [place] Exercise - Final/Discharge Physician Prescribed Exercise Modalities: Treadmill, Rower, Schwinn Airdyne AD-7, SciFit Stepper, SciFit Pro- II Ergometer and SciFit Lateral Product Developer Frequency: 3x/week for 12 weeks [36 sessions] Intensity: 60-80% of age predicted maximum heart rate reserve METs - Progression 0.5-1.0 weekly:: 0.5-1.0 Target Heart Rate:: 93-107 Nutrition - 30-Day Assessment Weight Mgt (Other Care) Height: 5 ft 10 in Weight:: 222 lb BMI: 31.8 Nutrition - 60-Day Assessment Weight Mgt (Other Care) Height: 5 ft 10 in Weight:: 222 lb BMI: 31.8 Core - Final Assessment Hypertension Resting Blood Pressure:: 126/58 [place] [employer] Hypertension Guidelines Core - 60-Day Assessment Hypertension Resting Blood Pressure:: 126/58 [place] [employer] Hypertension Guidelines Psychosocial - 30-Day Assess Referral to Behavioral Health PS - Interventions: Yes: Attend Stress Management Classes Psychosocial - 60-Day Assess Referral to Behavioral Health PS - Interventions: Yes: Attend Stress Management Classes Psychosocial - 90-Day Assess Referral to Behavioral Health PS - Interventions: Yes: Attend Stress Management Classes Psychosocial - Final Assessmen Psychosocial Test phq-9 Severity See PHQ-9 Score: 3 Referral to Behavioral Health PS - Interventions: Yes: Attend Stress Management Classes Nutrition - 90-Day Assessment Weight Mgt (Other Care) Height: 5 ft 10 in Weight:: 222 lb BMI: 31.8 Nutrition - Final Assessment Program Goals Patient has diagnosis of Hyperlipidemia (ICD E78)?: Yes Weight Mgt (Other Care) Height: 5 ft 10 in Weight:: 222 lb BMI: 31.8
[2025-03-19 15:14] VITALS: BP 126/58; BMI 31.8
== END | disposition home or self-care (01) ==
PROVIDERS: PCP Family Medicine; Referring Provider Thoracic Surgery (Cardiothoracic Vascular Surgery); Visit Provider Thoracic Surgery (Cardiothoracic Vascular Surgery)
DX: Z95.1 Presence of aortocoronary bypass graft (principal)

== ENCOUNTER 2025-03-29 11:15 | Outpatient (RCR) | payer MEDICARE, OTHER, SELFPAY ==
[2025-03-19 15:14] VITALS: BMI 31.8
== END 2025-03-30 23:59 ==
LOC: CR 11:15
PROVIDERS: PCP Family Medicine; Referring Provider Thoracic Surgery (Cardiothoracic Vascular Surgery); Visit Provider Thoracic Surgery (Cardiothoracic Vascular Surgery)
DX: Z95.1 Presence of aortocoronary bypass graft (principal)
CPT/HCPCS: 93798

== ENCOUNTER → 2025-04-20 | Outpatient (CLI) | payer MEDICARE, OTHER, SELFPAY ==
[2025-03-19 15:14] VITALS: BMI 31.8
[2025-04-15 08:26] VITALS: BMI 32.4
--- NOTE | 2025-04-20 13:57 | CT_ITS ---
PROCEDURE: LOW DOSE CT LUNG SCREENING 04/20/2025 REASON FOR EXAM: LUNG CANCER SCREENING TECHNIQUE: Procedure Code: [id number] Modality: CT Procedure: LOW DOSE CT LUNG SCREENING Coronal and Sagittal reconstruction series were provided. One or more dose reduction techniques were used (e.g., Automated exposure control, adjustment of the mA and/or kV according to patient size, use of iterative reconstruction technique). REFERENCE LINK: [facility] Lung-RADS RADIATION DOSE SUMMARY: CTDlvol: 4.02 mGy DLP: 140.44 mGycm COMPARISON: Low-dose CT lung screen, 02/24/2024. FINDINGS: PULMONARY NODULES: (Only nodules >3mm are reported) Lower neck:The thyroid gland is grossly unremarkable. There is no supraclavicular lymphadenopathy. Mediastinum:There are stable reactive mediastinal lymph nodes. Heart and Vasculature:The heart is enlarged. There is no pericardial effusion. There is significant calcific vascular disease of the coronary arteries and thoracic aorta. Status post CABG surgery. Esophagus:Normal. Upper Abdomen:There is calcific vascular disease of the visualized abdominal aorta. The spleen measures 14.7 cm in axial dimension. Chest wall:The soft tissues of the chest wall appear unremarkable. There is no axillary lymphadenopathy. There is mild multilevel degenerative disc disease of the thoracic spine. Status post median sternotomy. Lungs, airways and pleura: There is mild upper lobe predominant centrilobular emphysema. There is linear atelectasis in the lingula. There are benign calcified granulomas in the middle lobe of the right lung. There are no noncalcified pulmonary nodules. There are no pleural effusions. CT/Low Dose CT Lung Screening IMPRESSION: 1. Emphysema. 2. There are no noncalcified pulmonary nodules. 3. Calcific vascular disease, cardiomegaly, s/p CABG surgery. 4. Mild splenomegaly. 5. Other findings as noted. Lung-RADS Category: 1 S: Negative. Emphysema. Calcific vascular disease. Recommendation: Follow up low-dose chest CT in 12 months. Reading Location: [place] [id number]
== END | disposition home or self-care (01) ==
LOC: CT 13:56
PROVIDERS: PCP Family Medicine; Referring Provider Nurse Practitioner Family; Visit Provider Nurse Practitioner Family
DX: Z12.2 Encounter for screening for malignant neoplasm of respiratory organs (principal); Z87.891 Personal history of nicotine dependence
CPT/HCPCS: 71271

== ENCOUNTER → 2025-04-20 | Outpatient (CLI) | payer MEDICARE, OTHER, SELFPAY ==
[2025-04-15 08:26] VITALS: BMI 32.4
[2025-04-20 10:05] LABS: Hematocrit 43.2 % (40-54); Hemoglobin 13.8 g/dL (13.0-16.5); Immature Granulocytes Count 0.010 X10^3/uL (0.0-0.0); Mean Corp Hgb Conc 31.9 g/dL (32-36); Mean Corpuscular Volume 86.6 fL (80-94); Mean Platelet Vol. 10.4 fl (6.2-12.0); NRBC Flagged by Analyzer 0 % (0-5); Platelet Count 206 K/mm3 (150-450); RBC Distribution Width CV 13.7 % (11.6-14.6); RBC Distribution Width SD 42.7 fl (35.1-43.9); Red Blood Count 4.99 M/mm3 (4.6-6.2); White Blood Count 5.1 K/mm3 (4.4-11.0)
[2025-04-20 10:58] LABS: AST(SGOT) 25 U/L (<=37); Alanine Aminotransfer ALT/SGPT 25 U/L (<=46); Albumin, Serum 4.0 g/dL (3.4-4.8); Alkaline Phosphatase 61 U/L (40-129); Anion Gap 10 (5-15); BUN 16 mg/dL (4-19); BUN/Creat Ratio 18.2 RATIO (10-20); Calcium,Total 9.3 mg/dL (7.6-11.0); Carbon Dioxide 24.2 mmol/L (21.0-32.0); Chloride 107 mmol/L (98-108); Cholesterol 89 mg/dL (<=200); Globulin 2.9 g/dL (2.2-4.2); Glucose 101 mg/dL (70-99); Low Density Lipoprotein Calc. 25 mg/dL; PSA,Total - Annual Screen 0.76 ng/mL (0.02-4.00); Potassium 4.5 mmol/L (3.3-5.1); Triglycerides 107 mg/dL; Very Low Density Lipoprotein 21 mg/dL (5-40); cholesterol:hdl ratio screen 2.01
== END | disposition home or self-care (01) ==
LOC: LAB 09:36
PROVIDERS: PCP Family Medicine; Referring Provider Family Medicine; Visit Provider Family Medicine
DX: Z00.00 Encounter for general adult medical examination without abnormal findings (principal); E78.5 Hyperlipidemia, unspecified; Z86.73 Personal history of transient ischemic attack (TIA), and cerebral infarction without residual deficits; I25.10 Atherosclerotic heart disease of native coronary artery without angina pectoris
CPT/HCPCS: 36415; 80053; 80061; 84153; 85025; G0103

== ENCOUNTER 2025-04-30 11:15 | Outpatient (RCR) | payer MEDICARE, OTHER, SELFPAY ==
[2025-03-19 15:14] VITALS: BMI 31.8
--- NOTE | 2025-04-15 08:17 | PCM.CR.ITP ---
Exercise - Initial Assessment Visit Session #:: 10 Physician Prescribed Exercise Modalities: Treadmill, Schwinn Airdyne AD-7 and SciFit Stepper Nutrition - Initial Assessment Weight Mgt (Other Care) Height: 5 ft 10 in Weight:: 226 lb BMI: 32.4 Psychosocial - Initial Assess Referral to Behavioral Health PS - Interventions: Yes: Attend Stress Management Classes Exercise - 30-day Assessment Visit Date of Eval: 04/15/25 Session #:: 10 Physician Prescribed Exercise Modalities: Treadmill, Schwinn Airdyne AD-7 and SciFit Stepper Frequency: 3x/week for 12 weeks [36 sessions] Intensity: 60-80% of age predicted maximum heart rate reserve Duration: 30 - 45 minutes Current METSs:: 4.5 Target Heart Rate:: 93-107 Current RPE:: 12-13 Maximum Excercise HR:: 98 Resting Blood Pressure: 118/80 Maximum Exercise Blood Pressure: 132/70 EKG Type: NSR w/rare PAC and PVC Outcomes & Goals Goals:: Verbalizes understanding of THR, RPE & goal METS by session 6, Documents in home exercise log/reports 30 min aerobic 5 day/wk by DC, Demonstrates accurate pulse taking by DC and Other additional outcome/goals: see below Intervention & Plan Exercise Program Goals: Instruct on personal THR & RPE, Instruct on MET level & personal MET goal, Show patient to take own pulse /validate performance until accurate, Instruct on home exercise and Other additional plan/int Physical Activity Home Exercise Physical Activity - Home Exercise: Safe Exercise, Warm-up, Self-monitoring, Cool-Down, Home Exercise > 30 min Daily and Sitting Time <3 hours/daily Outcomes & Goals Outcomes/Goals: Demonstrates correct Warm-up/exercise Cool-Down (S3) if = 2.5 METs, Verbalizes symptoms of exercise intolerance by Session 3 (S3), Demonstrate safe equipment use (S3) & follows exercise prescrition (6) and Other: See below Intervention & Plan Plan/Intervention: Instruct warm-up & cool-down if exercising at > 2 METs, Instruct on symptoms of exercise intolerance & actions to take, Instruct & monitor on saf, Assess intial functional capacity & safety risk and Other See below 30-day Reassessments 30 day Reassessments:: Progressing Reassessment Notes & Comments:: Pt oriented to equipment. RPE explained to pt. Pt demonstrates understanding in his daily sessions. Exercise - 60-day Assessment Physician Prescribed Exercise Modalities: Treadmill, Schwinn Airdyne AD-7 and SciFit Stepper Exercise - 90-day Assessment Physician Prescribed Exercise Modalities: Treadmill, Schwinn Airdyne AD-7 and SciFit Stepper Exercise - Final/Discharge Physician Prescribed Exercise Modalities: Treadmill, Schwinn Airdyne AD-7 and SciFit Stepper Nutrition - 30-Day Assessment Program Goals Nutrition Program Goals Patient has diagnosis of Hyperlipidemia (ICD E78)?: Yes Visit Date of Eval: 04/15/25 Session #:: 10 Cholesterol/Lipids (Other Core Measures) Triglycerides (mg/dL): 131 Total Cholesterol (mg/dL): 171 LDL Cholesterol (mg/dL): 47 HDL Cholesterol (mg/dL): 44 Determine presence & major risk factors that modify LDL goal: Cigarette smoking, Hypertension or hypertensive medication, Low HDL cholesterol <40 mg/dL*, Family history of premature CHD in Male < 55 years: female <65 yearsFa and Age men > 45 years; women >/= 55 years Outcomes/Goals: Pt IDs own risk factors & lifestyle modifications by Session 10, Verbalizes symptoms of angina & response by session 3., Pt independently manages and Other Additional Outcomes/Goals: Intervention/Plan: Advocate for lipid panel cholesterol medication if applicable, Instruct on personal lipid levels & lipid goals/NCEP guidelines, Instruct on cholesterol and Other additional plan/int Referral to dietitian:: No (Pt declines. Nutrition survey score of 4.) Diabetes (Other Core Measures) Diabetes Type: Not Applicable Weight Mgt (Other Care) Height: 5 ft 10 in Weight:: 226 lb BMI: 32.4 Diagnosis Overweight/Obesity BMI> 30% ICD-10 E66: Yes Diagnosis High BMI/Morbid Obesity BMI> 35% ICD-10 Z68: No Outcomes/Goals: Pt sets, maintains & shows weight loss goal & trend during rehab and Other additional outcomes/goals Intervention/Plan: Instruct on ideal BMI & set weight loss goal w/patient, Assist pt to ID & incorporate diet changes for weight loss by S9, Refer to Structured Weight Loss program as appropriate, Encourage goal of using 250-300dcal per session for weight loss and Other additional plan/interventions 30 day Reassessments:: Progressing Reassessment Notes & Comments:: Pt is scheduled to attend nutrition classes. Low sodium heart healthy diet encouraged. Pt will have the option of a 1 on 1 consultation with our public service officer. Healthy Eating Habits Will attend diet classes:: Yes Outcomes/Goals:: Consume diet rich in vegs,fruits,whole grain/high fiber,fish,lean meat, Limit sat/trans fats,cholesterol & added salts & sugars and Other additional outcome/goals: Intervention/Plan:: Assess current eating habits and Other Additional plan/interventions 30-day Reassessments:: Progressing Reassessment Notes & Comments:: Pt is scheduled to attend nutrition classes. Low sodium heart healthy diet encouraged. Education Gave educational materials for:: Signs & symptoms of hypoglycemia, Signs & symptoms of hyperglycemia, Relate diabetes to coronary artery disease and Healthy eating Nutrition - 60-Day Assessment Weight Mgt (Other Care) Height: 5 ft 10 in Weight:: 226 lb BMI: 32.4 Core - 30-Day Assessment Visit Date of Eval: 04/15/25 Session #:: 10 Medication Compliance Preventative Medication(s):: Aspirin, Clopidogrel/P2Y12 inhibit and Statin/lipid H/O mental health issues: depression, anxiety, or addiction?: No Doesn’t believe in the benefits of treatment?: No Believes medications are unnecessary or harmful?: No Has a concern about medication side effects?: No Expresses concern over the cost of medications?: No Outcomes/Goals: Verbalizes medications,desired effect & common side effects @ DC, Pt self-reports following medication regimen, Keeps card in wallet w/medications listed by DC and Other additional outcome/goals: Interventions/plans: Instruct on medication effects & side effects, Review medication list w/patient every two weeks, Instruct importance of taking meds as ordered & assist problem solving and Other additional 30-day Reassessments:: Progressing Reassessment Notes & Comments:: 04/14 pt started Repatha Q 2 weeks. Tobacco Use Tobacco Use: Non-smoker (quit 06/18/2021) Hypertension Hypertension Diagnosis:: Hypertension ICD-10 I10 Resting Blood Pressure:: 118/80 [place] [employer] Hypertension Guidelines Peak Exercise Blood Pressure:: 132/70 Outcomes/Goals: Able to verbalize/achieve optimal blood pressure <130/80, Incorporates diet changes & exercise for blood pressure control by DC and Other additional outcomes/goals Interventions/plan: Instruct on optimal blood pressure, hypertension & medications, Instruct on effects of sodium, alcohol, stress, exercise &hypertension and Other additional plan/interventions 30 day Reassessments:: Progressing Reassessment Notes & Comments:: Pt's BP's are within AHA normal limits. Will continue to monitor and report to pt's physician if necessary. Tobacco Cessation Referral Smoking Cessation Referral:: No Individual Education/Counseling:: No Education Schedule Given:: Yes Psychosocial - 30-Day Assess VIsit Date of Eval: 04/15/25 Session #:: 10 History of previous Mental disease:: No Psychosocial Test Tool Used:: [employer] QOL Cardiac and PHQ-9 Questionnaire phq-9 Severity See PHQ-9 Score: 3 Referral to Behavioral Health PS - Interventions: Yes: Attend Stress Management Classes Outcomes/Goals: See list Psychosocial Outcomes/Goals:: ID's personal stressors & 2 strategies to manage stress by discharge and Other Additional outcome/goals: Intervention/Plan: See List Interventions/Plan:: Assess stressors,coping strategies & signs of derpression on admission, Instruct/assist pt to develop coping & personal stress Mgt strategies, Refer to Behavioral Health if appropriate, Refer to Physician if appropriate, Instruct patient to recognize signs & symptoms of depression, Instruct patient to recog and Other additional plan/intervention 30-day Reassessments: 30 day Reassessments:: Progressing Reassessment Notes & Comments:: Pt denies any psychosocial issues at this time. Pt to attend stress management class. Will reassess every 30 days. Psychosocial - 60-Day Assess Referral to Behavioral Health PS - Interventions: Yes: Attend Stress Management Classes Outcomes/Goals: See list Psychosocial Outcomes/Goals:: ID's personal stressors & 2 strategies to manage stress by discharge and Other Additional outcome/goals: Psychosocial - 90-Day Assess Referral to Behavioral Health PS - Interventions: Yes: Attend Stress Management Classes Psychosocial - Final Assessmen Referral to Behavioral Health PS - Interventions: Yes: Attend Stress Management Classes Nutrition - 90-Day Assessment Weight Mgt (Other Care) Height: 5 ft 10 in Weight:: 226 lb BMI: 32.4 Nutrition - Final Assessment Weight Mgt (Other Care) Height: 5 ft 10 in Weight:: 226 lb BMI: 32.4
[2025-04-15 08:26] VITALS: BP 118/80; BMI 32.4
[2025-04-15 08:30] VITALS: BP 118/80
== END 2025-04-30 23:59 ==
LOC: CR 11:15
PROVIDERS: PCP Family Medicine; Referring Provider Thoracic Surgery (Cardiothoracic Vascular Surgery); Visit Provider Thoracic Surgery (Cardiothoracic Vascular Surgery)
DX: Z95.1 Presence of aortocoronary bypass graft (principal)
CPT/HCPCS: 93798

== ENCOUNTER 2025-05-26 11:15 | Outpatient (RCR) | payer MEDICARE, OTHER, SELFPAY ==
[2025-04-15 08:26] VITALS: BMI 32.4
--- NOTE | 2025-05-12 08:55 | PCM.CR.ITP ---
Exercise - Initial Assessment Physician Prescribed Exercise Modalities: Treadmill, Schwinn Airdyne AD-7 and SciFit Stepper Nutrition - Initial Assessment Weight Mgt (Other Care) Height: 5 ft 10 in Weight:: 233 lb BMI: 33.4 Core - Initial Assessment Hypertension Resting Blood Pressure:: 132/78 [place] [employer] Hypertension Guidelines Psychosocial - Initial Assess Referral to Behavioral Health PS - Interventions: Yes: Attend Stress Management Classes Exercise - 30-day Assessment Physician Prescribed Exercise Modalities: Treadmill, Schwinn Airdyne AD-7 and SciFit Stepper Exercise - 60-day Assessment Visit Date of Eval: 05/12/25 Session #:: 21 Physician Prescribed Exercise Modalities: Treadmill, Schwinn Airdyne AD-7 and SciFit Stepper Frequency: 3x/week for 12 weeks [36 sessions] Intensity: 60-80% of age predicted maximum heart rate reserve Duration: 30 - 45 minutes Current METSs:: 5.2 Target Heart Rate:: 93-107 Current RPE:: 12.5-13 Maximum Excercise HR:: 89 Resting Blood Pressure: 122/58 Maximum Exercise Blood Pressure: 154/78 EKG Type: NSR to ST w/rare PAC and PVC Outcomes & Goals Goals:: Verbalizes understanding of THR, RPE & goal METS by session 6, Documents in home exercise log/reports 30 min aerobic 5 day/wk by DC, Demonstrates accurate pulse taking by DC and Other additional outcome/goals: see below Intervention & Plan Exercise Program Goals: Instruct on personal THR & RPE, Instruct on MET level & personal MET goal, Show patient to take own pulse /validate performance until accurate, Instruct on home exercise and Other additional plan/int Physical Activity Home Exercise Physical Activity - Home Exercise: Safe Exercise, Warm-up, Self-monitoring, Cool-Down, Home Exercise > 30 min Daily and Sitting Time <3 hours/daily Outcomes & Goals Outcomes/Goals: Demonstrates correct Warm-up/exercise Cool-Down (S3) if = 2.5 METs, Verbalizes symptoms of exercise intolerance by Session 3 (S3), Demonstrate safe equipment use (S3) & follows exercise prescrition (6) and Other: See below Intervention & Plan Plan/Intervention: Instruct warm-up & cool-down if exercising at > 2 METs, Instruct on symptoms of exercise intolerance & actions to take, Instruct & monitor on saf, Assess intial functional capacity & safety risk and Other See below 30-day Reassessments 30 day Reassessments:: Progressing Reassessment Notes & Comments:: Proper warm up and cool down demonstrated and explained to pt. Pt is able to return demonstration in their daily sessions. Exercise - 90-day Assessment Physician Prescribed Exercise Modalities: Treadmill, Schwinn Airdyne AD-7 and SciFit Stepper Exercise - Final/Discharge Physician Prescribed Exercise Modalities: Treadmill, Schwinn Airdyne AD-7 and SciFit Stepper Nutrition - 30-Day Assessment Weight Mgt (Other Care) Height: 5 ft 10 in Weight:: 233 lb BMI: 33.4 Nutrition - 60-Day Assessment Program Goals Nutrition Program Goals Patient has diagnosis of Hyperlipidemia (ICD E78)?: Yes Visit Date of Eval: 05/12/25 Session #:: 21 (Nutrition survey score of 4.) Cholesterol/Lipids (Other Core Measures) Total Triglycerides (mg/dL): 131 Total Cholesterol: 171 LDL Cholesterol (mg/dL): 47 HDL Cholesterol (mg/dL): 44 Determine presence & major risk factors that modify LDL goal: Cigarette smoking, Hypertension or hypertensive medication, Low HDL cholesterol <40 mg/dL*, Family history of premature CHD in Male < 55 years: female <65 yearsFa and Age men > 45 years; women >/= 55 years Outcomes/Goals: Pt IDs own risk factors & lifestyle modifications by Session 10, Verbalizes symptoms of angina & response by session 3., Pt independently manages and Other Additional Outcomes/Goals: Intervention/Plan: Advocate for lipid panel cholesterol medication if applicable, Instruct on personal lipid levels & lipid goals/NCEP guidelines, Instruct on cholesterol and Other additional plan/int Diabetes (Other Core Measures) Diabetes Type: Not Applicable Weight Mgt (Other Care) Height: 5 ft 10 in Weight:: 233 lb BMI: 33.4 Diagnosis Overweight/Obesity BMI> 30% ICD-10 E66: Yes Diagnosis High BMI/Morbid Obesity BMI> 35% ICD-10 Z68: No Outcomes/Goals: Pt sets, maintains & shows weight loss goal & trend during rehab and Other additional outcomes/goals Intervention/Plan: Instruct on ideal BMI & set weight loss goal w/patient, Assist pt to ID & incorporate diet changes for weight loss by S9, Refer to Structured Weight Loss program as appropriate, Encourage goal of using 250-300dcal per session for weight loss and Other additional plan/interventions Healthy Eating Habits Will attend diet classes:: Yes Outcomes/Goals:: Consume diet rich in vegs,fruits,whole grain/high fiber,fish,lean meat, Limit sat/trans fats,cholesterol & added salts & sugars and Other additional outcome/goals: Intervention/Plan:: Assess current eating habits and Other Additional plan/interventions 30-day Reassessments:: Progressing Reassessment Notes & Comments:: Pt is scheduled to attend nutrition classes with our distributor sales consultant. Heart healthy low sodium diet encouraged. Education Gave educational materials for:: Signs & symptoms of hypoglycemia, Signs & symptoms of hyperglycemia, Relate diabetes to coronary artery disease and Healthy eating Core - Final Assessment Hypertension Resting Blood Pressure:: 132/78 [place] [employer] Hypertension Guidelines Core - 60-Day Assessment Visit Date of Eval: 05/12/25 Session #:: 21 (Nutrition survey score 4.) Medication Compliance Preventative Medication(s):: Aspirin, Clopidogrel/P2Y12 inhibit and Statin/lipid H/O mental health issues: depression, anxiety, or addiction?: No Doesn’t believe in the benefits of treatment?: No Believes medications are unnecessary or harmful?: No Has a concern about medication side effects?: No Expresses concern over the cost of medications?: No Outcomes/Goals: Verbalizes medications,desired effect & common side effects @ DC, Pt self-reports following medication regimen, Keeps card in wallet w/medications listed by DC and Other additional outcome/goals: Interventions/plans: Instruct on medication effects & side effects, Review medication list w/patient every two weeks, Instruct importance of taking meds as ordered & assist problem solving and Other additional 30-day Reassessments:: Progressing Reassessment Notes & Comments:: 04/14 pt started on Repatha Q 2 weeks. Tobacco Use Tobacco Use: Non-smoker Hypertension Hypertension Diagnosis:: Hypertension ICD-10 I10 Resting Blood Pressure:: 122/58 Resting Blood Pressure:: 132/78 [place] [employer] Hypertension Guidelines Peak Exercise Blood Pressure:: 154/78 Outcomes/Goals: Able to verbalize/achieve optimal blood pressure <130/80, Incorporates diet changes & exercise for blood pressure control by DC and Other additional outcomes/goals Interventions/plan: Instruct on optimal blood pressure, hypertension & medications, Instruct on effects of sodium, alcohol, stress, exercise &hypertension and Other additional plan/interventions 30 day Reassessments:: Progressing Reassessment Notes & Comments:: Pt's BP's are within AHA normal limits. Will continue to monitor and report to pt's physician if necessary. Tobacco Cessation Referral Smoking Cessation Referral:: No Individual Education/Counseling:: No Education Schedule Given:: Yes Psychosocial - 30-Day Assess Referral to Behavioral Health PS - Interventions: Yes: Attend Stress Management Classes Outcomes/Goals: See list Psychosocial Outcomes/Goals:: ID's personal stressors & 2 strategies to manage stress by discharge and Other Additional outcome/goals: Psychosocial - 60-Day Assess VIsit Date of Eval: 05/12/25 Session #:: 21 History of previous Mental disease:: No Psychosocial Test Tool Used:: [employer] QOL Cardiac and PHQ-9 Questionnaire phq-9 Severity See PHQ-9 Score: 3 Referral to Behavioral Health PS - Interventions: Yes: Attend Stress Management Classes Outcomes/Goals: See list Psychosocial Outcomes/Goals:: ID's personal stressors & 2 strategies to manage stress by discharge and Other Additional outcome/goals: Intervention/Plan: See List Interventions/Plan:: Assess stressors,coping strategies & signs of derpression on admission, Instruct/assist pt to develop coping & personal stress Mgt strategies, Refer to Behavioral Health if appropriate, Refer to Physician if appropriate, Instruct patient to recognize signs & symptoms of depression, Instruct patient to recog and Other additional plan/intervention 30-day Reassessments: 30 day Reassessments:: Progressing Reassessment Notes & Comments:: Pt denies any psychosocial issues at this time. Pt to attend stress management class. Will reassess every 30 days. Psychosocial - 90-Day Assess Referral to Behavioral Health PS - Interventions: Yes: Attend Stress Management Classes Psychosocial - Final Assessmen Referral to Behavioral Health PS - Interventions: Yes: Attend Stress Management Classes Nutrition - 90-Day Assessment Weight Mgt (Other Care) Height: 5 ft 10 in Weight:: 233 lb BMI: 33.4 Nutrition - Final Assessment Weight Mgt (Other Care) Height: 5 ft 10 in Weight:: 233 lb BMI: 33.4
[2025-05-12 09:02] VITALS: BP 122/58
[2025-05-12 09:54] VITALS: BP 122/58; BP 132/78; BMI 33.4
== END 2025-05-30 23:59 ==
LOC: CR 11:15
PROVIDERS: PCP Family Medicine; Referring Provider Thoracic Surgery (Cardiothoracic Vascular Surgery); Visit Provider Thoracic Surgery (Cardiothoracic Vascular Surgery)
DX: Z95.1 Presence of aortocoronary bypass graft (principal)
CPT/HCPCS: 93798

== ENCOUNTER 2025-06-21 11:15 | Outpatient (RCR) | payer MEDICARE, OTHER, SELFPAY ==
[2025-05-12 09:54] VITALS: BMI 33.4
--- NOTE | 2025-06-09 08:42 | CR.ITP_ITS ---
Exercise - Initial Assessment Physician Prescribed Exercise Modalities: Schwinn Airdyne AD-7, SciFit Stepper and SciFit Lateral Personal Development Coach Nutrition - Initial Assessment Weight Mgt (Other Care) Height: 5 ft 10 in Weight:: 226 lb 8 oz BMI: 32.5 Psychosocial - Initial Assess Referral to Behavioral Health PS - Interventions: Yes: Attend Stress Management Classes Exercise - 30-day Assessment Physician Prescribed Exercise Modalities: Schwinn Airdyne AD-7, SciFit Stepper and SciFit Lateral Personal Development Coach Exercise - 60-day Assessment Physician Prescribed Exercise Modalities: Schwinn Airdyne AD-7, SciFit Stepper and SciFit Lateral Personal Development Coach Exercise - 90-day Assessment Visit Date of Eval: 06/09/25 Session #:: 30 Physician Prescribed Exercise Modalities: Schwinn Airdyne AD-7, SciFit Stepper and SciFit Lateral [place] Frequency: 3x/week for 12 weeks [36 sessions] Intensity: 60-80% of age predicted maximum heart rate reserve Duration: 30 - 45 minutes Current METSs:: 5.3 Target Heart Rate:: 93-114 Current RPE:: 10-12 Maximum Excercise HR:: 108 Resting Blood Pressure: 134/78 Maximum Exercise Blood Pressure: 138/78 EKG Type: NSR to ST w/rare PAC and rare PVC Outcomes & Goals Goals:: Verbalizes understanding of THR, RPE & goal METS by session 6, Documents in home exercise log/reports 30 min aerobic 5 day/wk by DC, Demonstrates accurate pulse taking by DC and Other additional outcome/goals: see below Intervention & Plan Exercise Program Goals: Instruct on personal THR & RPE, Instruct on MET level & personal MET goal, Show patient to take own pulse /validate performance until accurate, Instruct on home exercise and Other additional plan/int Physical Activity Home Exercise Physical Activity - Home Exercise: Safe Exercise, Warm-up, Self-monitoring, Cool-Down, Home Exercise > 30 min Daily and Sitting Time <3 hours/daily Outcomes & Goals Outcomes/Goals: Demonstrates correct Warm-up/exercise Cool-Down (S3) if = 2.5 METs, Verbalizes symptoms of exercise intolerance by Session 3 (S3), Demonstrate safe equipment use (S3) & follows exercise prescrition (6) and Other: See below Intervention & Plan Plan/Intervention: Instruct warm-up & cool-down if exercising at > 2 METs, Instruct on symptoms of exercise intolerance & actions to take, Instruct & monitor on saf, Assess intial functional capacity & safety risk and Other See below 30-day Reassessments 30 day Reassessments:: Met Reassessment Notes & Comments:: Pt has met his exercise goals. Pt was working at 5.3 METS. Pt will be given his exercise prescription as well as community resources to continue his exercise. Pt understands the importance of warming up and cooling down. Pt also understands symptoms of exercise intolerance and how to exercise safely. Exercise - Final/Discharge Physician Prescribed Exercise Modalities: Robinson Quintero AD-7, SciFit Stepper and SciFit Lateral Personal Development Coach Nutrition - 30-Day Assessment Weight Mgt (Other Care) Height: 5 ft 10 in Weight:: 226 lb 8 oz BMI: 32.5 Nutrition - 60-Day Assessment Weight Mgt (Other Care) Height: 5 ft 10 in Weight:: 226 lb 8 oz BMI: 32.5 Core - 30-Day Assessment Hypertension [place] [employer] Hypertension Guidelines Reassessment Notes & Comments:: Pt's BP's are within AHA normal limits on most days. Will continue to monitor and report to pt's physician if necessary. Core - Final Assessment Hypertension [place] [employer] Hypertension Guidelines Reassessment Notes & Comments:: Pt's BP's are within AHA normal limits on most days. Will continue to monitor and report to pt's physician if necessary. Core - 90 Day Assessment Visit Date of Eval: 06/09/25 Session #:: 30 Medication Compliance Preventative Medication(s):: Aspirin, Clopidogrel/P2Y12 inhibit and Statin/lipid H/O mental health issues: depression, anxiety, or addiction?: No Doesn?t believe in the benefits of treatment?: No Believes medications are unnecessary or harmful?: No Has a concern about medication side effects?: No Expresses concern over the cost of medications?: No Outcomes/Goals: Verbalizes medications,desired effect & common side effects @ DC, Pt self-reports following medication regimen, Keeps card in wallet w/medications listed by DC and Other additional outcome/goals: Interventions/plans: Instruct on medication effects & side effects, Review medication list w/patient every two weeks, Instruct importance of taking meds as ordered & assist problem solving and Other additional Tobacco Use Tobacco Use: Non-smoker Hypertension Hypertension Diagnosis:: Hypertension ICD-10 I10 Resting Blood Pressure:: 134/78 [place] [employer] Hypertension Guidelines Peak Exercise Blood Pressure:: 138/78 Outcomes/Goals: Able to verbalize/achieve optimal blood pressure <130/80, Incorporates diet changes & exercise for blood pressure control by DC and Other additional outcomes/goals Interventions/plan: Instruct on optimal blood pressure, hypertension & medications, Instruct on effects of sodium, alcohol, stress, exercise &hypertension and Other additional plan/interventions 30 day Reassessments:: Progressing Reassessment Notes & Comments:: Pt's BP's are within AHA normal limits on most days. Will continue to monitor and report to pt's physician if necessary. Tobacco Cessation Referral Smoking Cessation Referral:: No Individual Education/Counseling:: No Education Schedule Given:: Yes Psychosocial - 30-Day Assess Referral to Behavioral Health PS - Interventions: Yes: Attend Stress Management Classes Psychosocial - 60-Day Assess Referral to Behavioral Health PS - Interventions: Yes: Attend Stress Management Classes Psychosocial - 90-Day Assess VIsit Date of Eval: 06/09/25 Session #:: 30 History of previous Mental disease:: No Psychosocial Test Tool Used:: [employer] QOL Cardiac and PHQ-9 Questionnaire phq-9 Severity See PHQ-9 Score: 3 Referral to Behavioral Health PS - Interventions: Yes: Attend Stress Management Classes Outcomes/Goals: See list Psychosocial Outcomes/Goals:: ID's personal stressors & 2 strategies to manage stress by discharge and Other Additional outcome/goals: Intervention/Plan: See List Interventions/Plan:: Assess stressors,coping strategies & signs of derpression on admission, Instruct/assist pt to develop coping & personal stress Mgt strategies, Refer to Behavioral Health if appropriate, Refer to Physician if appropriate, Instruct patient to recognize signs & symptoms of depression, Instruct patient to recog and Other additional plan/intervention 30-day Reassessments: 30 day Reassessments:: Met Reassessment Notes & Comments:: Pt denies any psychosocial issues at this time. Pt has attended stress management class. Will reassess every 30 days. Psychosocial - Final Assessmen Referral to Behavioral Health PS - Interventions: Yes: Attend Stress Management Classes Nutrition - 90-Day Assessment Program Goals Nutrition Program Goals Patient has diagnosis of Hyperlipidemia (ICD E78)?: Yes Visit Date of Eval: 06/09/25 Session #:: 30 Cholesterol/Lipids (Other Core Measures) Determine presence & major risk factors that modify LDL goal: Cigarette smoking, Hypertension or hypertensive medication, Low HDL cholesterol <40 mg/dL*, Family history of premature CHD in Male < 55 years: female <65 yearsFa and Age men > 45 years; women >/= 55 years Outcomes/Goals: Pt IDs own risk factors & lifestyle modifications by Session 10, Verbalizes symptoms of angina & response by session 3., Pt independently manages and Other Additional Outcomes/Goals: Intervention/Plan: Advocate for lipid panel cholesterol medication if applicable, Instruct on personal lipid levels & lipid goals/NCEP guidelines, Instruct on cholesterol and Other additional plan/int Referral to dietitian:: No (Nutrition survey score of 4) Diabetes (Other Core Measures) Diabetes Type: Not Applicable Weight Mgt (Other Care) Height: 5 ft 10 in Weight:: 226 lb 8 oz BMI: 32.5 Diagnosis Overweight/Obesity BMI> 30% ICD-10 E66: Yes Diagnosis High BMI/Morbid Obesity BMI> 35% ICD-10 Z68: No Outcomes/Goals: Pt sets, maintains & shows weight loss goal & trend during rehab and Other additional outcomes/goals Intervention/Plan: Instruct on ideal BMI & set weight loss goal w/patient, Assist pt to ID & incorporate diet changes for weight loss by S9, Refer to Structured Weight Loss program as appropriate, Encourage goal of using 250-300d major per session for weight loss and Other additional plan/interventions Healthy Eating Habits Will attend diet classes:: Yes Outcomes/Goals:: Consume diet rich in vegs,fruits,whole grain/high fiber,fish,lean meat, Limit sat/trans fats,cholesterol & added salts & sugars and Other additional outcome/goals: Intervention/Plan:: Assess current eating habits and Other Additional plan/interventions 30-day Reassessments:: Met Reassessment Notes & Comments:: Pt has attended nutrition class. Pt understands the benefits of a hearth healthy low sodium diet. Education Gave educational materials for:: Signs & symptoms of hypoglycemia, Signs & symptoms of hyperglycemia, Relate diabetes to coronary artery disease and Healthy eating Nutrition - Final Assessment Weight Mgt (Other Care) Height: 5 ft 10 in Weight:: 226 lb 8 oz BMI: 32.5
[2025-06-09 08:50] VITALS: BP 134/78; BMI 32.5
== END 2025-06-30 23:59 ==
LOC: CR 11:15
PROVIDERS: PCP Family Medicine; Referring Provider Thoracic Surgery (Cardiothoracic Vascular Surgery); Visit Provider Thoracic Surgery (Cardiothoracic Vascular Surgery)
DX: Z95.1 Presence of aortocoronary bypass graft (principal)
CPT/HCPCS: 93798